=== PATIENT | male | born 1965 | race African-American/Black ===

== ENCOUNTER 2016-09-16 05:46 | Inpatient (IN) ==
[2016-09-16] MEDS ORDERED: NITROGLYCERIN ONE (05:50)
[2016-09-16] MEDS ORDERED: ZOFRAN ONE (05:55)
[2016-09-16] MEDS ORDERED: MORPHINE ONE (05:55)
[2016-09-16] MEDS ORDERED: CATAPRES PO ONE ×2 (06:13→10:08)
[2016-09-16] MEDS ORDERED: CATAPRES ONE ×2 (06:18)
--- NOTE | 2016-09-16 06:19 | PROVIDER DOCUMENTATION ---
HPI-Respiratory General - General Source: patient - History of Present Illness-Resp Quality of Pain: reports: none Onset/Duration: reports: 1-3 hours ago Timing: reports: still present Cough Quality/Degree: reports: mild Episode Frequency: occasional episodes Current Respiratory Medication Therapy: Initiated see nurses note Modifying Factors: improves with: nothing Associated Symptoms: reports: shortness of breath. denies: chest pain/soreness , headache, lightheadedness <Fred Hill Jr - Last Filed: 09/16/16 14:50> <Bobbi Burnett - Last Filed: 09/16/16 15:17> - General Chief Complaint: Shortness of Breath Stated Complaint: SOB Time Seen by Provider: 09/16/16 06:04 Allergies/Adverse Reactions: Patient Allergies Allergy/AdvReac Type Severity Reaction Status Date / Time No Known Allergies Allergy Verified 07/06/16 08:02 Home Medications: Home Medication List Medication Instructions Recorded Confirmed Last Taken Type Clonidine [Catapres] 0.2 mg PO TID 10/18/13 09/16/16 08/20/16 History Metformin [Glucophage] 500 mg BID 11/28/14 09/16/16 08/20/16 History Omeprazole [Prilosec] 20 mg PO DAILY 11/28/14 09/16/16 08/20/16 History Carvedilol [Coreg] 25 mg PO BID 07/06/16 09/16/16 08/20/16 History Cetirizine [Zyrtec] 1 tab PO DAILY 09/16/16 09/16/16 Unknown History Naproxen 1 tab PO BID 09/16/16 09/16/16 Unknown History Simvastatin 1 tab PO DAILY 09/16/16 09/16/16 Unknown History - History of Present Illness-Resp Nature of Presenting Problem: 51 y/o AAM with a PMHx of HLD, HTN and DM that presents to the ED with a CC of SOB. Pt states the symptoms started at 0430 upon awakening. Reports no aggravating or alleviating factors. Reports some productive cough, but does not know th color of the sputum. Additional associated symptoms include increased urinary frequency, but the patient reports this is normal in the AM. Pt denies any chest or abdominal pain, nausea, emesis or diarrhea. No other issues reported. (Fred Hill Jr) Review of Systems - Adult - REVIEW OF SYSTEMS - ADULT Constitutional: reports: no symptoms reported Eyes: reports: no symptoms reported Ears, Nose, Mouth & Throat: reports: no symptoms reported Cardiovascular: reports: no symptoms reported Respiratory: reports: shortness of breath Gastrointestinal: reports: no symptoms reported Genitourinary: reports: frequency Musculoskeletal: reports: no symptoms reported Integumentary: reports: no symptoms reported Neurological: reports: no symptoms reported Psychiatric: reports: no symptoms reported Endocrine: reports: no symptoms reported Hematologic/Lymphatic: reports: no symptoms reported Allergic/Immunologic: reports: no symptoms reported <Fred Hill Jr - Last Filed: 09/16/16 14:50> Past History - Adult - PAST MEDICAL HISTORY-ADULT Review of Records: reports: Old Records Reviewed, Nursing Assessment Review, Medications Reviewed Major Childhood Illnesses: reports: history unknown Cardiovascular: reports: HTN, hyperlipidemia Respiratory: reports: pneumonia Gastrointestinal: reports: GERD Musculoskeletal: reports: denies history Neurological: reports: denies history Endocrine/Immune: reports: Diabetes - PRIOR SURGERIES/PROCEDURES Surgical/Procedure History: reports: reviewed, not pertinent - IMMUNIZATION STATUS Childhood Immunizations: See Nurse Assessment Flu Vaccine: See Nurse Assessment - FAMILY HISTORY Family History: reviewed, not pertinent - SOCIAL HISTORY Smoking: cigarettes Substance Use: marijuana Alcohol Use Frequency: never Living Situation: family <Fred Hill Jr - Last Filed: 09/16/16 14:50> Physical Exam-General - PHYSICAL EXAM-ADULT Initial Vital Signs Reviewed: Yes - CONSTITUTIONAL General Appearance: alert, mild distress, obese. negative: slow to respond, obtunded, combative - EYES Eyes: PERRL/EOMI, pink conjunctivae - HEAD, EARS, NOSE, MOUTH & THROAT HENMT: normocephalic/atraumatic. negative: pharyngeal erythema, tonsillar exudate - NECK Neck: non-tender, supple. negative: tender lateral - RESPIRATORY Respiratory: chest non-tender, lungs clear, normal breath sounds. negative: accessory muscle use, crackles, rales, rhonchi, stridor, wheezing - CARDIOVASCULAR Cardiovascular: normal peripheral pulses, no murmur, tachycardia - CHEST (BREASTS) Chest/Breast: no tenderness - GASTROINTESTINAL (ABDOMEN) Abdominal Exam: normal bowel sounds, soft, distended (secondary to body habitus) . negative: guarding, rigid, rebound, tenderness - GENITOURINARY Male Genitalia: deferred Rectal Exam: deferred - LYMPHATIC Lymphatic: no adenopathy - MUSCULOSKELETAL Back Exam: normal inspection. negative: muscle spasm, swelling Extremity: normal range of motion. negative: deformity, erythema - SKIN Integumentary: normal color, normal turgor, warm/dry. negative: swelling, tenderness - NEUROLOGIC Neurologic: grossly normal. negative: facial droop, focal weakness, motor weakness, sensory deficit - PSYCHIATRIC Psych/Mental Status: normal mood/affect, normal thought content, normal thought process, oriented x 3. negative: anxious, disheveled, tearful <Fred Hill Jr - Last Filed: 09/16/16 14:50> Progress - REASSESSMENT Reassessment #1 Time Reassessed: 10:44 (Pt seen and examined. Explained care plan with patient and family. Pt and had minor argument over plan and patient stated that he was not going to [facility] and that he wanted to go home. I expressed my concern that the patient was having a heart attack. He stated he did not care and that he wanted to go home. I explained the risk associated with such a decision. Pt reiterated that he was going home. Please note that I was unable to give pt anticoagulation due to high blood pressure. ) Reassessment #2 Time Reassessed: 10:49 (Pt now states that [place] [facility] [place]iology. Please not that I am unable ot give patient anticoagulation due to BP. Unable to start drip as pt will not accept drip/ICU admission. ) - EKG 1 Time of EKG reading by physician:: 05:59 EKG Read and Signed by:: Fred Hill Jr EKG Interpretation (*Must complete 3 of following elements*): Abnormal Rate: 108 Rhythm: sinus tachycardia QRS: normal MI Interval: normal ST Wave: depressed Comments: T wave abnormality 2 Time of EKG reading by physician:: 07:19 EKG Read and Signed by:: Fred Hill Jr EKG Interpretation (*Must complete 3 of following elements*): Abnormal Rate: 77 Rhythm: normal sinus ST Wave: depressed Prior EKG Comparison: unchanged from prior Comments: t wave abnormality - CONSULTS/PCP/HOSPITALIST Notification #1 *Consult/PCP/Hospitalist*: Dr. Houser Time Discussed: 10:42 (send pt to [facility] for admission and he will see there for further evaluation ) #2 Consult: Dr. Ochoa Time Discussed: 11:50 Consult Disposition: Admit (accept in transfer. Will call when bed available.) <Fred Hill Jr - Last Filed: 09/16/16 14:50> - EKG 1 Time of EKG reading by physician:: 12:56 EKG Read and Signed by:: Fred Hill Jr EKG Interpretation (*Must complete 3 of following elements*): Abnormal (T wave abnormality; consider inferolateral ischemia Prolonged QT) Rate: 64 Rhythm: sinus with 1st degree AV block ST Wave: non-specific ST changes <Bobbi Burnett - Last Filed: 09/16/16 15:17> - PLAN OF CARE/RESULTS Progress/Plan/Lab Results: Laboratory Tests 09/16/16 09/16/16 09/16/16 05:50 05:50 05:50 WBC RBC Hgb Hct MCV MCH MCHC RDW Std Deviation Plt Count MPV Immature Gran % (Auto) Neut % (Auto) Lymph % (Auto) [place] % (Auto) Eos % (Auto) Baso % (Auto) Immature Gran # (Auto) Neut # (Auto) Lymph # (Auto) [place] # (Auto) Eos # (Auto) Baso # (Auto) PT INR APTT (Factor Assay) Sodium 136 Potassium 4.2 Chloride 100 Carbon Dioxide 19 L Anion Gap 18 BUN 22 Creatinine 2.0 H Estimated GFR/1.73 m2 35 BUN/Creatinine Ratio 11 Glucose 337 H POC Glucose Calculated Osmolality 289 Calcium 9.0 Magnesium 2.2 Total Bilirubin 0.20 AST 25 ALT 16 Alkaline Phosphatase 200 H Creatine Kinase 118 Troponin T 0.099 H Ixz-G-Oytspadjral Pept 2968 H Total Protein 7.7 Albumin 3.7 Globulin 4.0 Albumin/Globulin Ratio 1.0 09/16/16 09/16/16 09/16/16 05:50 05:50 08:01 WBC 7.39 RBC 6.52 H Hgb 17.0 Hct 48.1 MCV 73.8 L MCH 26.1 L MCHC 35.3 RDW Std Deviation 16.6 H Plt Count 203 MPV 10.6 H Immature Gran % (Auto) 0.3 Neut % (Auto) 34.2 L Lymph % (Auto) 51.8 H Atlantic % (Auto) 6.5 Eos % (Auto) 6.5 Baso % (Auto) 0.7 Immature Gran # (Auto) 0.02 Neut # (Auto) 2.53 Lymph # (Auto) 3.83 H Atlantic # (Auto) 0.48 Eos # (Auto) 0.48 Baso # (Auto) 0.05 PT 12.4 INR 0.89 APTT (Factor Assay) 28.6 Sodium Potassium Chloride Carbon Dioxide Anion Gap BUN Creatinine Estimated GFR/1.73 m2 BUN/Creatinine Ratio Glucose POC Glucose 311 H Calculated Osmolality Calcium Magnesium Total Bilirubin AST ALT Alkaline Phosphatase Creatine Kinase Troponin T Dpm-P-Chswectdovb Pept Total Protein Albumin Globulin Albumin/Globulin Ratio 09/16/16 09/16/16 09/16/16 08:19 08:19 09:36 WBC RBC Hgb Hct MCV MCH MCHC RDW Std Deviation Plt Count MPV Immature Gran % (Auto) Neut % (Auto) Lymph % (Auto) Atlantic % (Auto) Eos % (Auto) Baso % (Auto) Immature Gran # (Auto) Neut # (Auto) Lymph # (Auto) [place] # (Auto) Eos # (Auto) Baso # (Auto) PT INR APTT (Factor Assay) Sodium Potassium Chloride Carbon Dioxide Anion Gap BUN Creatinine Estimated GFR/1.73 m2 BUN/Creatinine Ratio Glucose POC Glucose 263 H Calculated Osmolality Calcium Magnesium Total Bilirubin AST ALT Alkaline Phosphatase Creatine Kinase 88 Troponin T 0.119 H Jnb-Z-Docplxexpgu Pept Total Protein Albumin Globulin Albumin/Globulin Ratio Orders Category Date Time Status Cardiac Monitoring DIRECTED Care 09/16/16 07:10 Active Oxygen Therapy- ED Nursing DIRECTED Care 09/16/16 07:10 Active Saline Loc NOW Care 09/16/16 07:10 Active CHEST-PORTABLE [RAD] Stat Exams 09/16/16 Completed CBC WITH ELECTRONIC DIFF [HEME] Stat Lab 09/16/16 05:50 Completed CK PROFILE [SP CHEM] Stat Lab 09/16/16 05:50 Completed CK PROFILE [SP CHEM] Stat Lab 09/16/16 08:19 Completed COMPREHENSIVE METABOLIC PANEL [CHEM] Stat Lab 09/16/16 05:50 Completed MAGNESIUM [CHEM] Stat Lab 09/16/16 05:50 Completed PRO B-NATRIURETIC PEPTIDE Stat Lab 09/16/16 05:50 Com[address]IME WITH INR PL [COAG] Stat Lab 09/16/16 05:[address] [COAG] Stat Lab 09/16/16 05:50 Completed TROPONIN T Stat Lab 09/16/16 05:50 Completed TROPONIN T Stat Lab 09/16/16 08:19 Completed 0.9% Sodium Chloride Inj [Ns] 1,000 ml Med 09/16/16 07:50 Discontinued IV 999 mls/hr Clonidine [Catapres] Med 09/16/16 06:18 Discontinued 0.1 mg .ROUTE .STK-MED ONE Clonidine [Catapres] Med 09/16/16 06:18 Discontinued 0.2 mg .ROUTE .STK-MED ONE Clonidine [Catapres] Med 09/16/16 10:08 Discontinued 0.2 mg PO NOW ONE Clonidine [Catapres] Med 09/16/16 06:13 Discontinued 0.3 mg PO NOW ONE Diltiazem [Cardizem] Med 09/16/16 08:08 Discontinued 10 mg IV NOW ONE Insulin Human Reg Dose ([address] [Humulin R Dose ([place] Med 09/16/16 08:44 Discontinued )] 1 dose .ROUTE .STK-MED ONE Insulin Human Regular [Humulin R] Med 09/16/16 07:50 Discontinued 10 unit IV NOW ONE Metoprolol [Lopressor] Med 09/16/16 07:08 Discontinued 5 mg IV NOW ONE Morphine Med 09/16/16 05:55 Discontinued 2 mg .ROUTE .STK-MED ONE Morphine Med 09/16/16 06:21 Discontinued 4 mg IV NOW ONE Nitroglycerin Med 09/16/16 05:50 Discontinued 1 inch .ROUTE .STK-MED ONE Nitroglycerin Med 09/16/16 06:21 Discontinued 1 inch TOP NOW ONE Ondansetron [Zofran] Med 09/16/16 05:55 Discontinued 4 mg .ROUTE .STK-MED ONE Ondansetron [Zofran] Med 09/16/16 06:21 Discontinued 4 mg IV NOW ONE EKG [EKG] Stat Ther 09/16/16 06:27 Draft EKG [EKG] Stat Ther 09/16/16 07:11 Draft Vital Signs - 24 hr 09/16/16 09/16/16 09/16/16 05:46 06:02 06:07 Temperature 97.8 F Pulse Rate 121 H 111 H 109 H Respiratory 24 33 H 25 H Rate Blood Pressure 257/177 245/154 245/154 O2 Sat by Pulse 85 L 89 L 89 L Oximetry 09/16/16 09/16/16 09/16/16 06:22 06:34 07:05 Temperature Pulse Rate 116 H 104 H 92 H Respiratory 22 24 Rate Blood Pressure 245/160 217/142 224/135 O2 Sat by Pulse 91 L 93 L Oximetry 09/16/16 09/16/16 09/16/16 07:07 07:10 07:15 Temperature Pulse Rate 87 83 81 Respiratory 26 H Rate Blood Pressure 184/127 203/127 196/131 O2 Sat by Pulse 93 L Oximetry 09/16/16 09/16/16 09/16/16 07:20 07:25 07:35 Temperature Pulse Rate 79 79 75 Respiratory Rate Blood Pressure 199/127 190/118 169/124 O2 Sat by Pulse Oximetry 09/16/16 09/16/16 09/16/16 07:45 08:39 08:56 Temperature Pulse Rate 75 71 69 Respiratory 24 26 H Rate Blood Pressure 193/122 191/117 178/115 O2 Sat by Pulse 95 95 Oximetry 09/16/16 09/16/16 09/16/16 09:05 09:07 09:10 Temperature Pulse Rate 67 67 68 Respiratory Rate Blood Pressure 167/105 174/103 162/99 O2 Sat by Pulse Oximetry 09/16/16 09/16/16 09:15 10:26 Temperature Pulse Rate 68 65 Respiratory 24 22 Rate Blood Pressure 164/97 157/97 O2 Sat by Pulse 93 L 96 Oximetry (Fred Hill Jr) Departure - Departure Time of Disposition Order: 10:43 Certified Medical Emergency: Emergent <Fred Hill Jr - Last Filed: 09/16/16 14:50> <Bobbi Burnett - Last Filed: 09/16/16 15:17> - Departure DIAGNOSIS: NSTEMI (non-ST elevated myocardial infarction), Hypertensive urgency, malignant , Medical non-compliance Disposition: ADMITTED INPATIENT 09 Condition: Fair Attestation - Scribe Verification/Attestation Scribe:: Bobbi Burnett Acting as Scribe for:: Fred Hill Jr Scribe documention review:: This chart was documented by a scribe and accurately reflects the service the provider performed and the decisions made by the provider. - Physician/ JENNA Attestation Patient care was provided by Advanced Practice Provider:: No <Bobbi Burnett - Last Filed: 09/16/16 15:17> Physician Attestation
[2016-09-16] MEDS ORDERED: NITROGLYCERIN TOP ONE (06:21)
[2016-09-16] MEDS ORDERED: MORPHINE IV ONE (06:21)
[2016-09-16] MEDS ORDERED: ZOFRAN IV ONE (06:21)
--- NOTE | 2016-09-16 06:31 | EKG Report ---
Test Performed on : 09/16/2016 05:59:01 AM Test Reason : SOB Blood Pressure : / mmHG Vent. Rate : 108 BPM Atrial Rate : 108 BPM P-R Int : 198 ms QRS Dur : 096 ms QT Int : 356 ms P-R-T Axes : 021 002 123 degrees QTc Int : 477 ms Sinus tachycardia. Possible Left atrial enlargement Septal infarct , age undetermined Cannot rule out Inferior infarct , age undetermined T wave abnormality, consider lateral ischemia Abnormal ECG When compared with ECG of 24-AUG-2016 08:43, Significant changes have occurred Unconfirmed Result
[2016-09-16] MEDS ORDERED: LOPRESSOR IV ONE (07:08)
--- NOTE | 2016-09-16 07:12 | Diag Imaging Result Document ---
PROCEDURE NAME: CHEST-PORTABLE - 09/16/2016 PORTABLE CHEST: COMPARISON: Compared to 08/24/2016. FINDINGS: The lungs are well expanded. The heart is not enlarged. There are increased interstitial markings in the mid and lower lungs. No pleural effusions identified. IMPRESSION: Pulmonary edema versus pneumonia. Followup PA and lateral recommended.
[2016-09-16 07:25] LABS: BASO% 0.7 % (0.0-0.8); EOS# 0.48 X1000 (0.0-0.7); EOS% 6.5 % (0.0-10.0); HEMATOCRIT 48.1 % (42.0-52.0); IMM GRAN# 0.02 X1000 (0.0-0.04); IMM GRAN% 0.3 % (0.0-0.5); LYMPH# 3.83 X1000 (1.2-3.4); LYMPH% 51.8 % (20.5-51.1); MANUAL DIFF NEEDED? NO; MCH 26.1 PG (27-31); MCHC 35.3 g/dL (33-37); MCV 73.8 FL (81-99); MONO# 0.48 X1000 (0.11-0.59); MONO% 6.5 % (1.7-9.3); MPV 10.6 FL (7.4-10.4); NEUT% 34.2 % (42.2-75.2); PLT 203 X1000 (130-400); RBC 6.52 XMIL (4.7-6.1)
--- NOTE | 2016-09-16 07:27 | EKG Report ---
Test Performed on : 09/16/2016 07:19:20 AM Test Reason : sob Blood Pressure : / mmHG Vent. Rate : 077 BPM Atrial Rate : 077 BPM P-R Int : 204 ms QRS Dur : 094 ms QT Int : 448 ms P-R-T Axes : 025 -28 128 degrees QTc Int : 506 ms Normal sinus rhythm. Possible Left atrial enlargement Septal infarct (cited on or before 16-SEP-2016) T wave abnormality, consider lateral ischemia Prolonged QT Abnormal ECG When compared with ECG of 16-SEP-2016 05:59, (Unconfirmed) Serial changes of Septal infarct present Unconfirmed Result
[2016-09-16 07:35] LABS: INR 0.89 (0.86-1.15); PROTIME 12.4 Seconds (12.1-15.5)
[2016-09-16 07:36] LABS: PTT PL 28.6 Seconds (22.6-43.9)
[2016-09-16 07:44] LABS: ALBUMIN 3.7 g/dL (3.5-5.0); MAGNESIUM 2.2 mg/dL (1.5-2.7); POTASSIUM 4.2 mmol/L (3.5-5.1); TOTAL BILIRUBIN 0.2 mg/dL (0.20-1.00); TOTAL PROTEIN 7.7 g/dL (6.3-8.3)
[2016-09-16] MEDS ORDERED: HUMULIN R IV ONE (07:50)
[2016-09-16] MEDS ORDERED: NS 1,000 ML IV ONE (07:50)
[2016-09-16] MEDS ORDERED: CARDIZEM IV ONE (08:08)
[2016-09-16] MEDS ORDERED: HUMULIN R DOSE (PARKWAY) ONE (08:44)
[2016-09-16] MEDS ORDERED: ASPIRIN ONE (11:54)
[2016-09-16] MEDS ORDERED: ASPIRIN PO ONE (11:55)
[2016-09-16] MEDS ORDERED: NICODERM PATCH TD ONE (12:57)
[2016-09-16] MEDS ORDERED: ATIVAN PO ONE (12:57)
[2016-09-16] MEDS ORDERED: APRESOLINE IV ONE (13:11)
--- NOTE | 2016-09-16 13:17 | EKG Report ---
Test Performed on : 09/16/2016 12:56:25 PM Test Reason : 6 hr Blood Pressure : / mmHG Vent. Rate : 064 BPM Atrial Rate : 064 BPM P-R Int : 216 ms QRS Dur : 092 ms QT Int : 468 ms P-R-T Axes : 031 -03 158 degrees QTc Int : 482 ms Sinus rhythm. with 1st degree AV block. T wave abnormality, consider inferolateral ischemia Prolonged QT Abnormal ECG When compared with ECG of 16-SEP-2016 07:19, (Unconfirmed) Criteria for Septal infarct are no longer present Unconfirmed Result
[2016-09-16] MEDS ORDERED: HEPARIN 25,000 UNITS/D5W 250 ML IV SCH (13:30)
[2016-09-16] MEDS ORDERED: TRANDATE PO SCH ×4 (13:45→13:55)
[2016-09-16] MEDS ORDERED: TRANDATE ONE (13:56)
[2016-09-16] MEDS: NORVASC PO SCH ×2 (14:05→20:05)
[2016-09-16] MEDS ORDERED: ZOFRAN IV PRN (14:44)
[2016-09-16] MEDS ORDERED: NICODERM PATCH TD SCH (14:44)
[2016-09-16] MEDS ORDERED: TYLENOL PO PRN (14:44)
[2016-09-16] MEDS ORDERED: TRANDATE PO ONE ×2 (14:56)
[2016-09-16] MEDS: HUMALOG SUBQ SCH ×2 (16:17→20:16)
[2016-09-16 16:30] LABS: POTASSIUM 4.2 mmol/L (3.5-5.1)
[2016-09-16] MEDS: CATAPRES PO SCH (16:50)
--- NOTE | 2016-09-16 17:31 | HISTORY AND PHYSICAL ---
PRIMARY CARE PHYSICIAN: Dr. Ross TILE MECHANIC HELPER: Dr. Camilo CHIEF COMPLAINT: Shortness of breath. HISTORY OF PRESENT ILLNESS: This is a 51-year-old gentleman who presented to the emergency room complaining of shortness of breath. He states that shortly after getting up this morning that he had what he felt like was an asthma attack, stating that he just could not get his breath. He felt like air would go in, but he could not get air out. He denied any accompanying symptoms. He states he has never had this before. Movement aggravated. Being still relieved somewhat. On arrival to the emergency room, he had a room air saturation of 85. It did increase to 89% on 4 liters nasal cannula. He was noted to have a blood pressure of 257/ 177 with a heart rate of 121, with EKGs revealing sinus tachycardia. Troponin returned at 0.099. In the emergency room, he was given p.o. clonidine, morphine, nitroglycerin ointment, IV Lopressor, as well as IV Cardizem. Blood pressures did decrease to the 160s to 180s over 90s to low 100s. He does state that for the last 20 years despite multiple medications daily, his blood pressure normally runs in the 180s to 190s over 100 to 110. He states that somewhere around 9 o'clock his shortness of breath resolved, and at the time of interview, he denies any complaints other than being hungry. He underwent echocardiogram and myocardial perfusion scan in March of 2015. Echocardiogram at that time revealed an EF of 55% with normal structure, and myocardial perfusion scan revealed nondiagnostic Lexiscan. Electrocardiogram with myocardial perfusion images revealed a low-grade reversible defect in inferior wall with significant chest wall attenuation with EF of 57%. He states that within the last three or four months he had a heart catheterization in [place] that was negative according to his report. PAST MEDICAL HISTORY: 1. Hypertension. 2. Diabetes type 2. 3. Hyperlipidemia. 4. Sleep apnea, although he does not wear CPAP. PAST SURGICAL HISTORY: 1. Cyst on the back of his neck removed. 2. 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 SOCIAL HISTORY: He smokes a pack a day. He denies alcohol or illicit drug use. He does live with his and children that are active in his care. ALLERGIES: No known drug allergies. HOME MEDICATIONS: Simvastatin daily, clonidine 0.2 t.i.d., Prilosec 20 daily, Naprosyn one tablet twice a day, metformin 500 b.i.d., Zyrtec one tab daily, Coreg 25 mg b.i.d. REVIEW OF SYSTEMS: Fourteen-point review of systems was discussed with patient with pertinent positives stated in the HPI. He denied any chest pain, palpitations, syncope, dizziness, PND, orthopnea, fever, chills, black or bloody vomitus, black or bloody stool, nausea , vomiting, diarrhea, constipation, hematuria, dysuria. PHYSICAL EXAMINATION: GENERAL: This is a 51-year-old gentleman who was sitting up in the bed in no distress. VITAL SIGNS: Blood pressure is 185/102 with a heart rate of 65, respirations 20. Temperature is 97.8 oral with oxygen saturations of 99% on 4 liters nasal cannula. HEENT: Head is normocephalic, atraumatic. Pupils equal, round, reactive to light. EOMs are intact. Sclerae are anicteric. Mucous membranes are moist. NECK: Supple with trachea midline. CARDIOVASCULAR: Regular rate and rhythm. S1 and S2 appreciated. PULMONARY: Breath sounds are clear with no increased work of breathing noted. Chest does rise and fall symmetric with respiration. GASTROINTESTINAL: Abdomen is soft, nontender, nondistended, with bowel sounds in all four quadrants. BACK: No CVAT. No spine tenderness. MUSCULOSKELETAL: Good range of motion of joints . NEUROLOGIC: He is alert and oriented x3 with cranial nerves II through XII grossly intact. EXTREMITIES: No clubbing, cyanosis, or edema. Calves are nontender, and pulses are palpable x4. SKIN: Warm and dry with no rashes or lesions noted. DIAGNOSTICS: WBC is 7.39 with hemoglobin 17, hematocrit 48, and platelets of 203. Chemistry: Sodium is 136, potassium 4.2, BUN 22, creatinine 2, with glucose of 337. INR is 0.89. Troponin was 0.099, 0.119, 0.113. ASSESSMENT AND PLAN: 1. Lii-XR-innuhncg myocardial infarction. 2. Hypertensive urgency. 3. Medical noncompliance. 4. Tobacco abuse. 5. Chronic kidney disease. Patient will be admitted to ICU, placed on telemetry. Cardiology will be consulted. Will give supplemental oxygen. Will start heparin. Due to his chronic kidney disease, we will start heparin drip. We will not give a bolus at this time. We will follow heparin protocol. I did discuss the patient with Dr. Houser. At this time, will start labetalol as well as Norvasc. Will hold his metformin. Place him on patterned blood glucose with sliding scale insulin. We did discuss nicotine cessation, discussing the perils of continuing as well as options to stop. Nicotine patch will be given. The patient was very anxious. He was refusing ICU admission, talking about going home. I did spend 30 minutes or so in the room with the patient. Discussed actually the anatomy behind an MS. We discussed dysrhythmias as well as extension of an MS that could end up in . After taking the time to talk with him and answering his questions, he did state that he would be transferred to [facility]. He would go to ICU. He will see Dr. Houser and cooperate with the care. His as well as daughter were present. Their questions were also answered. Further treatments pending hospital course. Dictated by EVON De La Garza for Dgaoberto Ochoa MD Seen and I agree with the above evaluation I discussed with Dr Houser the shipping checker on the case Patient had Left heart cath about 18months ago and had very normal coronaries according to cardiology. BP continues to be high. Ass: Hypertensive Emergency Acute Diastolic Heart failure Troponin elevation secondary to demand Ischemia acute on chronic CKD Morbid obesity. Dc Heparin Aggressive control of BP Echo MTDD
[2016-09-16 17:49] LABS: INR 1.04
--- NOTE | 2016-09-16 17:53 | CONSULTATION ---
DATE OF CONSULTATION: 09/16/2016 CONSULTATION REQUESTED BY: Hospitalist Service, emergency room physician also. REASON FOR CONSULTATION: Hypertensive crisis. CHIEF COMPLAINT: Shortness of breath. HISTORY OF PRESENT ILLNESS: Mr. Allen is a 51-year-old black gentleman who is well known to our service. The patient was in his usual state of health, got up this morning at the usual time. He says that typically he gets up at 4:30 in the morning, watches the news, and then has to get to work at [employer] by 7 a.m. In the morning he noted all of a sudden that he started to sweat profusely and then he noted that he could not breathe. This got worse very quickly and then he decided to call the emergency service. They got to his house and they noted that his blood pressure was exceedingly high. He was brought to the emergency department at [facility] where they noted a blood pressure that at first encounter was 191/117 and subsequent measurements 178/115, 174/103, 207/114. They recorded it at 250 at the time of first encounter with the emergency medical service. At any rate, the patient has been given a number of medications to try to lower his blood pressure including labetalol, hydralazine, and so forth. At this time, his blood pressure is still running relatively high, systolic in the 180 to 200 range. He is feeling much better. He was given oxygen. He denies having any chest pain. During the initial assessment, they checked a pro BNP level. It was 2968. They checked troponin levels twice, 0.099, 0.119, and 0.113. The patient has a BUN of 22. Creatinine is 2.0. His CPK was normal. Of note, his alkaline phosphatase is elevated at 200. His hemoglobin is 17 grams. His chest x-ray at the time of initial presentation, read by Dr. Gibbons, indicated pulmonary edema. There is cardiomegaly. Electrocardiogram initially showed sinus tachycardia with diffuse repolarization abnormalities. Subsequent electrocardiograms showed generally the same type of pattern. There is diffuse T wave inversion. PAST MEDICAL HISTORY: Past history is positive for severe hypertension for a number of years, diabetes mellitus type 2. He has been obese. Weight went up to 330 pounds, now is down to 288. He has hyperlipidemia, gastroesophageal reflux. The patient has been found to have significant hypertrophic ventricle and, at some point on one of the Holter monitors that they gave him, they noted a 28-beat run of ventricular tachycardia. He was sent to [facility] for evaluation. They did a cardiac MR study that showed patchy fibrosis in the midwall of the entire ventricle that was not typical of any specific disease, more than likely due to long-term hypertension. He has had previous CT of the coronary arteries in 2011 that showed 0 calcium score and no evidence of any significant coronary stenosis. Subsequently he underwent a stress test that showed possible reversible defect in 2014 and he was sent to Dr. Sun in [place] who performed a heart catheterization on him. By the way, this was a very difficult heart cath according to his own report in March of 2015. He found no stenosis in the left main, 10% in the LAD proximally and 15% in the midportion of it. The circumflex was 10%. The right coronary artery was 0. Left ventricular ejection fraction was normal. The end diastolic pressure of the left ventricle was 15 mm. The patient thereafter has followed with Dr. Camilo. The last time he was seen at the office was June of 2015. HOME MEDICATIONS: His home medications at the time of this admission include: 1. Amlodipine 5 mg twice a day. 2. Clonidine 0.2 three times a day. 3. Simvastatin 1 tablet daily. 4. Prilosec 20 mg daily. 5. Naprosyn 1 tablet twice a day. 6. Metformin 500 twice a day. 7. Zyrtec 1 tablet daily. 8. Carvedilol 25 twice a day. ALLERGIES: Negative. PAST SURGICAL HISTORY: Neck surgery and finger surgery. SOCIAL HISTORY: He is . He lives at home with family. He smokes 1-2 packs a day for many years. REVIEW OF SYSTEMS: Noncontributory. He is very active. He goes to work every day. He has been working at [employer] for the past 13 years and he has no difficulty performing his duties. Review of systems is basically noncontributory. PHYSICAL EXAMINATION: Vital signs: Right now blood pressure 156/92, pulse 69, temperature 97.8, respirations 16. General: He is awake, alert, in no distress, sitting upright. He appears to be comfortable. HEENT: Unremarkable. Chest: Clear to auscultation and percussion. Cardiac: Heart sounds regular and rhythmic. No gallop or murmur. Abdomen: Nontender, soft. No masses or hepatomegaly. Extremities: Good pulses. No peripheral edema. Neurologic: Moves all four extremities. LABORATORY DATA: Blood work I have already reported. IMPRESSION: 1. Patient who presented truly with hypertensive crisis. Patient presented with acute pulmonary edema secondary to severe hypertension. He does have evidence of severe left ventricular hypertrophy by cardiac imaging studies. He has had previous cardiac catheterization indicating trivial coronary disease which does not contribute to the presentation. 2. History of isolated episode of nonsustained ventricular tachycardia noted on a Holter monitor. 3. Long-term hypertension. 4. Mild renal dysfunction. 5. History of diabetes mellitus type 2. 6. Obesity. 7. Patient reports a history of sleep apnea syndrome and he has not been complaint with his CPAP mask. The last time he was checked was [address] Hernandez. RECOMMENDATIONS: 1. Patient really needs to be placed on an adequate regimen to manage his severe hypertension. He should be on a combination of beta-blockers, specifically labetalol 300-500 mg twice a day, plus amlodipine 5-10 mg twice a day, plus angiotensin destiney, either Diovan and losartan 50 twice a day or 100 twice a day. He may require a tiny amount of a diuretic on a regular basis. 2. He needs to be referred back to Dr. Hernandez for reassessment of his sleep apnea syndrome. 3. He really needs to work on losing weight. His body mass index right now is 37. He is still quite obese. 4. He needs to quit smoking also. 5. One additional piece of advise is, given the fact that his calcium score was 0 and he had very trivial coronary artery disease, consideration might be given at reassessing the need for using simvastatin to treat his hyperlipidemia. The reason is because of his abnormal liver function tests. Alkaline phosphatase is significantly elevated and that may have to be investigated. Thank you for the opportunity to participate in his evaluation.
[2016-09-16] MEDS: COREG PO SCH (20:05)
[2016-09-16] MEDS: MINIPRESS PO SCH (20:05)
[2016-09-17] MEDS: LABETALOL IV PRN ×3 (04:03→22:56)
[2016-09-17] MEDS: HUMALOG SUBQ SCH ×4 (06:49→20:14)
[2016-09-17] MEDS: PRILOSEC PO SCH (06:50)
[2016-09-17 07:04] LABS: MANUAL DIFF NEEDED? NO
[2016-09-17 07:26] LABS: BASO% 0.1 % (0.0-0.8); EOS# 0.29 X1000 (0.0-0.7); EOS% 4.3 % (0.0-10.0); HEMATOCRIT 36.2 % (42.0-52.0); HEMOGLOBIN 12.5 g/dL (14.0-18.0); LYMPH# 2.19 X1000 (1.2-3.4); LYMPH% 32.6 % (20.5-51.1); MCH 25.9 PG (27-31); MCHC 34.5 g/dL (33-37); MCV 75.1 FL (81-99); MONO# 0.35 X1000 (0.11-0.59); MONO% 5.2 % (1.7-9.3); MPV 10.8 FL (7.4-10.4); NEUT% 57.8 % (42.2-75.2); PLT 126 X1000 (130-400); RBC 4.82 XMIL (4.7-6.1)
[2016-09-17 07:34] LABS: HEMOGLOBIN A1C 7.4 % (4.8-6.0)
--- NOTE | 2016-09-17 07:35 | EKG Report ---
Test Performed on : 09/17/2016 06:28:25 AM Test Reason : dyspnea Blood Pressure : / mmHG Vent. Rate : 069 BPM Atrial Rate : 069 BPM P-R Int : 202 ms QRS Dur : 096 ms QT Int : 458 ms P-R-T Axes : 032 -02 132 degrees QTc Int : 490 ms Normal sinus rhythm. T wave abnormality, consider anterolateral ischemia Prolonged QT Abnormal ECG When compared with ECG of 16-SEP-2016 12:56, (Unconfirmed) No significant change was found Confirmed by John Wan MD ([id number]) on 09/17/2016 9:02:03 PM
[2016-09-17] MEDS: NORVASC PO SCH ×3 (08:37→20:11)
[2016-09-17] MEDS: CATAPRES PO SCH ×3 (08:37→17:10)
[2016-09-17] MEDS: NICODERM PATCH TD SCH (08:37)
[2016-09-17] MEDS: COREG PO SCH (08:37)
--- NOTE | 2016-09-17 09:22 | PROGRESS NOTE ---
DATE: 09/17/2016 CHIEF COMPLAINT: Diaphoresis, shortness of breath, hypertensive crisis. SUBJECTIVE: Mr. Crs blood pressure is still running on the high side. He is generally feeling fine. He is not short of breath. He is not having any sweats. He has not had any chest pain. OBJECTIVE: Vital signs: His blood pressure today has been as high as 200/115. His pulse is in the 65-70 range, respirations 19, temperature 97.8. General: He is awake, alert, oriented, in no distress. HEENT: Unremarkable. He is eating breakfast. Chest: Clear to auscultation and percussion. Cardiac: Heart sounds are regular and rhythmic, no gallop or murmur. Abdomen: Nontender, soft, no masses, no hepatomegaly. Extremities: Good pulses, no peripheral edema. Neurological: He moves 4 extremities, follows commands. BLOOD WORK: Total cholesterol 264, triglycerides 704, HDL 28, LDL 86. His last BUN and creatinine from yesterday were 27 and 2.1. IMPRESSION: 1. Patient who presented with hypertensive crisis and acute pulmonary edema, diastolic heart failure--acute--due to severe hypertension. 2. History of diabetes. 3. History of dyslipidemia. 4. Hypertrophic cardiomyopathy like left ventricle, just due to correction poorly controlled hypertension. RECOMMENDATION: We will go ahead and maximize his medications. We will go up on labetalol to 400 mg twice a day. Will go on amlodipine to 10 mg twice a day. Will see how he does. He should stay in stepdown unit until his blood pressure is really very well controlled. Further advice will be forthcoming. [facility]
[2016-09-17] MEDS: LANTUS SUBQ SCH (10:00)
[2016-09-17] MEDS: CRESTOR PO SCH (10:00)
[2016-09-17] MEDS: APRESOLINE PO SCH ×2 (10:00→17:10)
[2016-09-17] MEDS: TRANDATE PO SCH ×2 (10:00→20:11)
[2016-09-17] MEDS: TRICOR PO SCH (10:00)
[2016-09-17] MEDS ORDERED: INSULIN PEN NEEDLES ONE (10:08)
--- NOTE | 2016-09-17 13:08 | Diag Imaging Result Document ---
PROCEDURE NAME: US RENAL 2 (RETROPER) COMPLETE - 09/17/2016 RENAL ULTRASOUND: COMPARISON: None available. FINDINGS: Note that this study was ordered as a renal artery Doppler. However, the patient was not n.p.o. for this reason as well as body habitus, renal artery waveforms could not be obtained. The kidneys are grossly normal in echotexture with no discrete mass or hydronephrosis. The right kidney measures 11.6 cm and the left kidney measures 11 cm in the greatest longitudinal axes. The right renal cortex measures up to 1.1 cm and the left renal cortex measures up to 0.8 cm in thickness. The urinary bladder is grossly unremarkable. There is a shadowing stone in the gallbladder lumen noted incidentally. The gallbladder is partially contracted. IMPRESSION: 1. Unable to obtain renal artery waveforms for the reasons discussed above. 2. Grossly unremarkable renal ultrasound, otherwise. 3. Incidental cholelithiasis.
--- NOTE | 2016-09-17 17:23 | PROGRESS NOTE ---
DATE: 09/17/2016 Today Mr. Allen referred to be doing fine. Did not really have any complaints. OBJECTIVE: Vital signs: Blood pressure is 161/100, pulse of 63, respirations 21, temperature is 98.2 degrees. General Exam: Mr. Allen is a 57-year-old male. He was in bed. He did not seem to be in any distress. HEENT: Mucosa is pink and moist. Anicteric and acyanotic. Neck: Supple. Chest: Good air entry bilateral. There are a few bibasilar crepitations. Cardiovascular: Regular rate and rhythm. Abdomen: Soft, distended, nontender. Extremities: No pedal edema. CLAIM REP: Patient is alert and oriented x4. There is no focal neurological deficit. LABORATORY DATA: WBC is 6.71, hemoglobin is 12.5, platelet count of 126,000. ASSESSMENT: 1. Hypertensive emergency. The blood pressure is gradually getting better. We will continue with the current changes that have been done. 2. Acute diastolic heart failure. 3. Troponin elevation secondary to demand ischemia. 4. Acute on chronic kidney disease. 5. Morbid obesity. 6. Hypertriglyceridemia. GENERAL PLAN: We will going to discontinue the simvastatin because of amlodipine drug interaction and put the patient on atorvastatin. We will start the patient on fenofibrate for the hypertriglyceridemia to prevent acute pancreatitis. We will do a renal ultrasound with Duplex to look at the flow in the renal artery and will also do aldosterone and renin level and metanephrines as initial studies to rule out possible secondary causes of hypertension. If the patient continues to be asymptomatic and the blood pressure is better controlled we will be able to discharge him tomorrow morning. [facility]
[2016-09-17] MEDS: MINIPRESS PO SCH (20:11)
[2016-09-18] MEDS: APRESOLINE PO SCH ×2 (01:41→08:00)
[2016-09-18 05:11] LABS: MANUAL DIFF NEEDED? NO
[2016-09-18 05:29] LABS: BASO% 0.3 % (0.0-0.8); EOS# 0.36 X1000 (0.0-0.7); EOS% 5.4 % (0.0-10.0); HEMATOCRIT 34.5 % (42.0-52.0); HEMOGLOBIN 11.9 g/dL (14.0-18.0); LYMPH# 2.72 X1000 (1.2-3.4); LYMPH% 40.7 % (20.5-51.1); MCH 26.2 PG (27-31); MCHC 34.5 g/dL (33-37); MCV 75.8 FL (81-99); MONO# 0.47 X1000 (0.11-0.59); MPV 12.3 FL (7.4-10.4); NEUT% 46.6 % (42.2-75.2); PLT 145 X1000 (130-400); RBC 4.55 XMIL (4.7-6.1)
[2016-09-18 05:45] LABS: CALCIUM 8.1 mg/dL (8.8-10.2); POTASSIUM 4.3 mmol/L (3.5-5.1)
[2016-09-18] MEDS: HUMALOG SUBQ SCH ×2 (06:18→11:02)
[2016-09-18] MEDS: CRESTOR PO SCH (08:00)
[2016-09-18] MEDS: NICODERM PATCH TD SCH (08:00)
[2016-09-18] MEDS: TRICOR PO SCH (08:00)
[2016-09-18] MEDS: TRANDATE PO SCH (08:00)
[2016-09-18] MEDS: NORVASC PO SCH (08:00)
[2016-09-18] MEDS: CATAPRES PO SCH ×2 (08:01→12:45)
[2016-09-18] MEDS: PRILOSEC PO SCH (08:01)
[2016-09-18] MEDS: LANTUS SUBQ SCH (08:02)
[2016-09-18] MEDS ORDERED: TRANDATE PO SCH (11:06)
[2016-09-18] MEDS ORDERED: APRESOLINE PO SCH (11:06)
--- NOTE | 2016-09-18 11:25 | PROGRESS NOTE ---
DATE: 09/18/2016 SUBJECTIVE: Mr. Allen reports he feels okay. He has no headaches. He is tolerating oral intake. OBJECTIVE: Vital Signs: On physical examination this morning, he is afebrile. His heart rates are in the high 60s to low 70s. His most recent blood pressure was 159/98. General: Generally, no acute distress. Cardiovascular: He is in a regular rate and rhythm. He has no obvious murmurs. No lower extremity edema. Chest: His chest exam is clear bilaterally. No increased work of breathing. Abdomen: Soft, nontender, nondistended. He has no obvious organomegaly. PERTINENT DATA: His white count 6.7, hematocrit 34.5, platelet count is 145. Sodium 133, potassium 4.3, BUN 29, creatinine 2.5. ASSESSMENT: 1. Hypertensive urgency. 2. Renal insufficiency. PLAN: I will increase his labetalol to 600 b.i.d. I will go up on his hydralazine to 75 t.i.d. The patient needs aggressive management of his blood pressure as an outpatient. I urged him to follow up with the sleep doctors to re-evaluate his sleep apnea. He is not compliant with CPAP therapy. I urged them to assess his diet for excess sodium.
[2016-09-18] MEDS ORDERED: ROBITUSSIN-AC PO PRN (13:14)
[2016-09-18 13:40] VITALS: BP 166/97
--- NOTE | 2016-09-19 01:07 | DISCHARGE SUMMARY ---
ADMISSION DATE: 09/16/2016 DISCHARGE DATE: 09/18/2016 FOLLOWUP: 1. Patient's PCP, Dr. Ross. 2. Patient's Named Account Executive, Dr. Camilo. CONSULTATIONS DURING THIS ADMISSION: Cardiology was consulted. Patient was seen by Dr. Houser, and followed up by Dr. Roque. INVASIVE PROCEDURES DONE DURING THIS ADMISSION: None. IMAGING STUDIES OF SIGNIFICANCE: A renal ultrasound was done, which was not able to obtain the kidneys were grossly unremarkable. Incidental cholelithiasis was found. ADMISSION DIAGNOSES: 1. Hypertensive emergency. 2. Acute diastolic heart failure. 3. Troponin elevation, secondary to demand ischemia. 4. Acute on chronic kidney disease. DISCHARGE DIAGNOSES: 1. Hypertensive emergency. 2. Acute diastolic heart failure. 3. Troponin elevation, secondary to demand ischemia. 4. Acute on chronic kidney disease. 5. Morbid obesity with a BMI of 37.0. 6. Hypertriglyceridemia. DISCHARGE MEDICATIONS: 1. Clonidine 0.2 p.o. 3 times per day. 2. Fenofibrate 145 mg daily. 3. Hydralazine 75 mg at bedtime. 4. Insulin 20 units subcutaneous daily. 5. Labetalol 600 b.i.d. 6. Prazosin 5 mg at bedtime. 7. Rosuvastatin 20 mg p.o. daily. 8. Amlodipine 10 mg b.i.d. 9. Guaifenesin 10 mL p.o. q 4 to 6 daily. PRESENTING COMPLAINT: Shortness of breath. HISTORY OF PRESENTING COMPLAINT: Mr Allen is a 51-year-old male, history of uncontrolled hypertension, who presented to [facility] because of acute onset of shortness of breath. Upon presentation, patient was evaluated. Blood pressure was 257/177. EKG was unrevealing, except for sinus tachy, but patient's troponin's were relatively elevated. Patient was admitted and transferred over here for suspicion of Aev-EI-[id number] elevation myocardial infarction. HOSPITAL COURSE: The patient was admitted to the intensive care unit. Blood pressure was aggressively managed. Troponin's were trended, however, we did have cardiology to see the patient. Patient usually sees Dr. Camilo, and there is a record that left heart catheterization was done about 18 months ago, and patient had normal coronaries. So we thought the troponin elevation was just due to demand ischemia from severe hypertension. During the hospital stay, the patient was also found to have microcytosis. Iron levels where done, and it was relatively fine, so we think this is probably anemia of chronic disease. Patient's creatinine has been relatively elevated since 2015. Here in the hospital it did worsen a little bit. I think this is probably due to the hypertensive nephrosclerosis , and patient will need to follow up with nephrology outpatient. However, he is making very adequate urine today. The urine output was 2075, and his electrolytes and acid base is normal. Today the patient blood pressure at the time of discharge is 166/97, pulse of 69 , respiration is 19. Patient is completely asymptomatic, and physical examination is unremarkable. Therefore, we are going to discharge the patient home to follow up with his primary care doctor, and also his primary operating room orderly. RECOMMENDATIONS: The patient has been advised on compliance to medications, also low-salt diet, and follow up with Nephrology as indicated above. 1. At the time of discharge, there is pending aldosterone, metanephrines and renin test, which patient is advised to review this with his primary operating room orderly. DISPOSITION: Home. ACTIVITY: As tolerated. DIET: Healthy heart diet. FOLLOWUP: The patient to follow up with the sub-specialities and with his PCP involved in his care. TIME SPENT: 1. For this discharge was 35 minutes. [id number]
== END 2016-09-18 14:23 | disposition home or self-care (01) | DRG 291 ==
LOC: P.ED 05:46 → ICU 05:47
PROVIDERS: ATTEND Internal Medicine
DX: I13.0 Hypertensive heart and chronic kidney disease with heart failure and stage 1 through stage 4 chronic kidney disease, or unspecified chronic kidney disease (principal); I50.31 Acute diastolic (congestive) heart failure; E11.22 Type 2 diabetes mellitus with diabetic chronic kidney disease; I24.8 Other forms of acute ischemic heart disease; I16.1 Hypertensive emergency; E66.01 Morbid (severe) obesity due to excess calories; N18.9 Chronic kidney disease, unspecified; E78.1 Pure hyperglyceridemia; G47.30 Sleep apnea, unspecified; F17.210 Nicotine dependence, cigarettes, uncomplicated; K21.9 Gastro-esophageal reflux disease without esophagitis; R74.8 Abnormal levels of other serum enzymes; I42.2 Other hypertrophic cardiomyopathy; D63.8 Anemia in other chronic diseases classified elsewhere; Z68.37 Body mass index [BMI] 37.0-37.9, adult; Z79.899 Other long term (current) drug therapy; Z79.84 Long term (current) use of oral hypoglycemic drugs; Z79.1 Long term (current) use of non-steroidal anti-inflammatories (NSAID); Z91.19 Patient's noncompliance with other medical treatment and regimen; Z82.49 Family history of ischemic heart disease and other diseases of the circulatory system
CPT/HCPCS: 71010; 76770; 80048; 80053; 80061; 82088; 82550; 82728; 82948; 83036; 83540; 83550; 83721; 83735; 83835; 83880; 84244; 84484; 85025; 85610; 85730; 93005; 93010; 94761; 96365; 96375; J0360; J1644; J1815; J2270; J2405; J7030

== ENCOUNTER 2017-01-12 03:47 | Inpatient (IN) ==
[2017-01-12] MEDS ORDERED: VASOTEC ONE (03:55)
[2017-01-12] MEDS ORDERED: LASIX ONE (03:55)
[2017-01-12] MEDS ORDERED: NITROGLYCERIN ONE (03:56)
[2017-01-12] MEDS ORDERED: LASIX IV ONE (04:00)
[2017-01-12] MEDS ORDERED: VASOTEC IV ONE ×2 (04:01→04:08)
[2017-01-12] MEDS ORDERED: NITROGLYCERIN TOP ONE (04:01)
[2017-01-12] MEDS ORDERED: NITROGLYCERIN 50 MG/D5W 50 MG/250 ML IV.SOLN IV SCH ×2 (04:06→05:55)
--- NOTE | 2017-01-12 04:15 | PROVIDER DOCUMENTATION ---
HPI-Respiratory General - General Chief Complaint: Shortness of Breath Stated Complaint: SOB Time Seen by Provider: 01/12/17 04:04 Source: patient, family Unable to obtain history due to:: urgency Allergies/Adverse Reactions: Patient Allergies Allergy/AdvReac Type Severity Reaction Status Date / Time No Known Allergies Allergy Verified 01/12/17 05:08 Home Medications: Home Medication List Medication Instructions Recorded Confirmed Last Taken Type Clonidine [Catapres] 0.2 mg PO TID 10/18/13 01/20/17 08/20/16 History Cetirizine [Zyrtec] 1 tab PO DAILY 09/16/16 01/20/17 Unknown History Glipizide/Metformin HCl 1 each PO BID 01/12/17 01/20/17 Unknown History [Glipizide-Metformin 5-500 mg] Omeprazole 20 mg PO DAILY 01/12/17 01/20/17 Unknown History SIMVAstatin [Zocor] 20 mg PO DAILY 01/12/17 01/20/17 Unknown History Furosemide [Lasix] 40 mg PO DAILY #30 tablet 01/13/17 01/20/17 Unknown Rx Verapamil S.r. [Isoptin Sr] 240 mg PO DAILY #30 tablet 01/13/17 01/20/17 Unknown Rx Aspirin/Acetaminophen/Caffeine 1 - 2 each PO BID PRN 01/20/17 01/20/17 Unknown History [[facility] Ex-Str Powder Packet] Alprazolam [Xanax] 0.5 mg PO BID PRN #60 tablet 01/22/17 Unknown Rx Amlodipine [Norvasc] 5 mg PO BID #60 tablet 01/22/17 Unknown Rx Carvedilol [Coreg] 50 mg PO BID #60 tablet 01/22/17 Unknown Rx Clonidine [Catapres] 0.3 mg PO TID #90 tablet 01/22/17 Unknown Rx Hydralazine [Apresoline] 100 mg PO TID #90 tablet 01/22/17 Unknown Rx Hydrochlorothiazide 12.5 mg PO BID #60 tablet 01/22/17 Unknown Rx Hydrocodone/APAP 5 mg/325 mg 1 each PO Q4H PRN PRN #25 tablet 01/22/17 Unknown Rx [[place]-5] Losartan [Cozaar] 50 mg PO BID #60 tablet 01/22/17 Unknown Rx - History of Present Illness-Resp Quality of Pain: reports: none Onset/Duration: reports: 4-6 hours ago Timing: reports: still present Context: reports: recent URI Exposure: reports: unknown cause Cough Quality/Degree: reports: severe Current Respiratory Medication Therapy: Initiated none Modifying Factors: improves with: exertion, lying down Associated Symptoms: reports: heart racing, shortness of breath, short of breath , sweaty Similar Symptoms Previously?: Yes Recently seen or treated by another doctor?: No Review of Systems - Adult - REVIEW OF SYSTEMS - ADULT ROS:: unobtainable per condition Constitutional: reports: no symptoms reported Eyes: reports: no symptoms reported Ears, Nose, Mouth & Throat: reports: no symptoms reported Cardiovascular: reports: no symptoms reported Respiratory: reports: dyspnea on exertion, excessive sputum production, shortness of breath Gastrointestinal: reports: no symptoms reported Genitourinary: reports: no symptoms reported Musculoskeletal: reports: no symptoms reported Integumentary: reports: other (SWEATY) Neurological: reports: no symptoms reported Psychiatric: reports: no symptoms reported Endocrine: reports: no symptoms reported Hematologic/Lymphatic: reports: no symptoms reported Allergic/Immunologic: reports: no symptoms reported All Other Systems: Reviewed and Negative Past History - Adult - PAST MEDICAL HISTORY-ADULT Review of Records: reports: Old Records Reviewed, Nursing Assessment Review, Medications Reviewed, Social history reviewed & non-contributory. Major Childhood Illnesses: reports: history unknown Cardiovascular: reports: HTN, hyperlipidemia Respiratory: reports: pneumonia Gastrointestinal: reports: GERD Obstetrical/Gynecological: reports: denies history Genitourinary: reports: denies history Musculoskeletal: reports: denies history Neurological: reports: denies history Endocrine/Immune: reports: Diabetes Other Conditions: reports: denies history - PRIOR SURGERIES/PROCEDURES Surgical/Procedure History: reports: reviewed, not pertinent - IMMUNIZATION STATUS Childhood Immunizations: See Nurse Assessment Flu Vaccine: See Nurse Assessment - FAMILY HISTORY Family History: reviewed, not pertinent - SOCIAL HISTORY Smoking: denies Substance Use: none/never Alcohol Use Frequency: occasionally Living Situation: family Physical Exam-General - PHYSICAL EXAM-ADULT Initial Vital Signs Reviewed: Yes - CONSTITUTIONAL General Appearance: severe distress, obese, anxious, slow to respond - EYES Eyes: PERRL/EOMI, pink conjunctivae - HEAD, EARS, NOSE, MOUTH & THROAT HENMT: normocephalic/atraumatic, moist mucous membranes, normal ENT inspection, TMs normal - NECK Neck: non-tender, full range of motion, supple - RESPIRATORY Respiratory: respiratory distress, decreased breath sounds, accessory muscle use , rales (BILATERALLY) - CARDIOVASCULAR Cardiovascular: no gallop, tachycardia, other (2+ PITTING EDEMA) - GASTROINTESTINAL (ABDOMEN) Abdominal Exam: non tender, distended - LYMPHATIC Lymphatic: no adenopathy - MUSCULOSKELETAL Back Exam: normal inspection, no CVA tenderness, no vertebral tenderness Extremity: normal range of motion, non-tender, swelling Peripheral Pulses: radial (R): 4+, radial (L): 4+ - SKIN Integumentary: diaphoresis - NEUROLOGIC Neurologic: grossly normal, no motor/sensory deficits - PSYCHIATRIC Psych/Mental Status: anxious, disheveled Progress - PLAN OF CARE/RESULTS Progress/Plan/Lab Results: Orders Category Date Time Status Admit - [facility] Routine AdmDCTranf 01/12/17 05:55 Ordered Activity - Bed Rest with BRP ORDERED Care 01/12/17 05:55 Active FSBS [Finger Stick Blood Sugar (ED)] DIRECTED Care 01/12/17 04:05 Completed [place] Cath Insertion ORDERED Care 01/12/17 04:16 Completed Resuscitation Status Routine Care 01/12/17 05:47 Ordered Saline Loc DIRECTED Care 01/12/17 05:55 Completed Vital Signs Order ROUTINE Care 01/12/17 05:55 Completed Z-Document. for Tele Applied ORDERED Care 01/12/17 06:19 Completed CHEST-PORTABLE [RAD] Stat Exams 01/12/17 04:05 Completed CK PROFILE [SP CHEM] Stat Lab 01/12/17 03:55 Completed COMPREHENSIVE METABOLIC PANEL [CHEM] Stat Lab 01/12/17 03:55 Completed TROPONIN T Stat Lab 01/12/17 03:55 Completed 0.9% Sodium Chloride Inj [Ns] 1,000 ml Med 01/12/17 04:33 Discontinued .ROUTE As Directed 0.9% Sodium Chloride Inj [Ns] 1,000 ml Med 01/12/17 04:53 Discontinued IV 30 mls/hr Enalaprilat [Vasotec] Med 01/12/17 03:55 Discontinued 1.25 mg .ROUTE .STK-MED ONE Enalaprilat [Vasotec] Med 01/12/17 04:01 Discontinued 1.25 mg IV NOW ONE Enalaprilat [Vasotec] Med 01/12/17 04:08 Discontinued 1.25 mg IV NOW ONE Furosemide [Lasix] Med 01/12/17 03:55 Discontinued 40 mg .ROUTE .STK-MED ONE Furosemide [Lasix] Med 01/12/17 04:00 Discontinued 40 mg IV NOW ONE Hydralazine [Apresoline] Med 01/12/17 04:22 Discontinued 10 mg IV NOW ONE Hydralazine [Apresoline] Med 01/12/17 04:21 Discontinued 20 mg .ROUTE .STK-MED ONE Morphine Med 01/12/17 05:55 Discontinued 2 mg IV Q2H PRN PRN Nitroglycerin Med 01/12/17 04:01 Discontinued 0.5 inch TOP NOW ONE Nitroglycerin Med 01/12/17 03:56 Discontinued 1 inch .ROUTE .STK-MED ONE Nitroglycerin 50 mg/D5w Med 01/12/17 04:06 Discontinued 50 mg in 250 ml IV 10 microgm/min Nitroglycerin 50 mg/D5w Med 01/12/17 05:55 Discontinued 50 mg in 250 ml IV 130 microgm/min Ondansetron [Zofran] Med 01/12/17 05:55 Discontinued 4 mg IV Q4H PRN PRN BIPAP Stat Oth 01/12/17 04:06 Completed BIPAP Stat Oth 01/12/17 05:55 Completed Telemetry [OM.EQ] Routine Oth 01/12/17 05:55 Active EKG [EKG] Stat Ther 01/12/17 04:04 Draft Transfer/Admit Order [TRANSFER] Routine Transfer 01/12/17 05:46 Completed Result Diagrams: 01/12/17 10:57 01/12/17 15:54 - EKG 1 Time of EKG reading by physician:: 03:55 EKG Read and Signed by:: Edu Kruse EKG Interpretation (*Must complete 3 of following elements*): Abnormal Rate: 113 Rhythm: SINUS NH Interval: normal ST Wave: elevated (SEPTAL LEADS MILD ELEVATION WITH LATERAL T WAVE INVERSION) Departure - Departure Date of Disposition Decision: 01/12/17 Time of Disposition Decision: 17:00 DIAGNOSIS: CHF (congestive heart failure) Qualifiers: Congestive heart failure type: combined Congestive heart failure chronicity: acute on chronic Qualified Code(s): I50.43 - Acute on chronic combined systolic (congestive) and diastolic (congestive) heart failure Disposition: ADMITTED INPATIENT 09 Certified Medical Emergency: Emergent Condition: Stable - Critical Care Note This patient required my direct & personal management of CC.: No
[2017-01-12] MEDS ORDERED: APRESOLINE ONE (04:21)
[2017-01-12] MEDS ORDERED: APRESOLINE IV ONE (04:22)
[2017-01-12] MEDS ORDERED: NS 1,000 ML ONE (04:33)
[2017-01-12 04:51] LABS: AGAP 16; ALKALINE PHOSPHATASE 150 U/L (32-122); BUN 25 mg/dL (8-22); CALCIUM 9.2 mg/dL (8.8-10.2); CHLORIDE 106 mmol/L (98-107); COSMO 296; POTASSIUM 4.1 mmol/L (3.5-5.1); SODIUM 142 mmol/L (136-145); TCO2 20 mmol/L (25-35); TOTAL BILIRUBIN < 0.15 mg/dL (0.20-1.00); TOTAL PROTEIN 7.3 g/dL (6.3-8.3)
--- NOTE | 2017-01-12 04:51 | EKG Report ---
Test Performed on : 01/12/2017 03:54:50 AM Test Reason : shortness of breath Blood Pressure : / mmHG Vent. Rate : 113 BPM Atrial Rate : 113 BPM P-R Int : 212 ms QRS Dur : 098 ms QT Int : 320 ms P-R-T Axes : 035 -38 086 degrees QTc Int : 438 ms Sinus tachycardia. with 1st degree AV block. Possible Left atrial enlargement Left axis deviation Septal infarct , age undetermined T wave abnormality, consider lateral ischemia Abnormal ECG No previous ECGs available Unconfirmed Result
[2017-01-12] MEDS ORDERED: NS 1,000 ML IV ONE (04:53)
[2017-01-12 05:03] LABS: GOT 11 U/L (10-34); GPT 11 U/L (10-44)
[2017-01-12] MEDS ORDERED: MORPHINE IV PRN (05:55)
[2017-01-12] MEDS ORDERED: ZOFRAN IV PRN ×2 (05:55→10:49)
--- NOTE | 2017-01-12 07:53 | Diag Imaging Result Doc PS360 ---
CHEST-PORTABLE - 01/12/2017 INDICATION: SOB TECHNIQUE: COMPARISON: 09/16/2016 FINDINGS: There is worsening opacification of the midlungs spaces bilaterally, left greater than right. Stable cardiomegaly and pulmonary vascular congestion. No pneumothorax or large effusion. IMPRESSION: 1. Worsening central infiltrates bilaterally, nonspecific but suggesting pulmonary edema or ARDS. 2. Stable cardiomegaly and pulmonary vascular congestion. Electronically signed by Estrada Shahid 01/12/2017 7:51 AM
[2017-01-12 08:26] LABS: BE -2.8 mmoll (-3.0-3.0); BLOOD TYPE ARTERIAL; DRAW SITE R RADIAL; METHB 0.6 % (0.0-1.5); O2(CT) 18.2 mL/dL (15.0-23.0); PCO2(98.6) 37 mmHg (35-45); PO2(98.6) 129 mmHg (60-100); SAMPLE BLOOD; SAO2 97.5 % (95.0-100.0); THB 13.3 g/dL (11.5-17.4); pH(98.6) 7.38 (7.35-7.45)
[2017-01-12 08:29] LABS: ALLEN TEST YES; MODALITY BI PAP
[2017-01-12] MEDS: MORPHINE IV PRN ×2 (08:40→21:23)
[2017-01-12] MEDS ORDERED: APRESOLINE IV PRN (10:38)
[2017-01-12] MEDS ORDERED: APRESOLINE PO SCH (10:45)
[2017-01-12] MEDS ORDERED: TYLENOL PO PRN (10:49)
[2017-01-12 11:13] LABS: HEMATOCRIT 35.9 % (42.0-52.0); HEMOGLOBIN 12.4 g/dL (14.0-18.0); MCH 25.3 PG (27-31); MCHC 34.5 g/dL (33-37); MCV 73.1 FL (81-99); MPV 10.8 FL (7.4-10.4); RBC 4.91 XMIL (4.7-6.1)
[2017-01-12] MEDS: APRESOLINE PO SCH ×3 (11:13→18:31)
[2017-01-12] MEDS: NICODERM PATCH TD PRN (11:13)
[2017-01-12] MEDS: LASIX IV SCH ×2 (11:13→21:14)
[2017-01-12] MEDS: CATAPRES PO SCH ×3 (11:14→18:31)
[2017-01-12] MEDS: COREG PO SCH ×2 (11:14→20:55)
[2017-01-12] MEDS: NORVASC PO SCH (11:17)
--- NOTE | 2017-01-12 11:26 | HISTORY AND PHYSICAL ---
CHIEF COMPLAINT: Shortness of breath. HISTORY OF PRESENT ILLNESS: This is a 51-year-old gentleman history of hypertension, diabetes presenting with uncontrolled hypertension, shortness of breath. Patient started having shortness of breath yesterday progressively worse over the last 1-2 days. He has noticed increasing lower extremity edema. Also increasing weight. He says he has gotten down to 291. His weight here has been around 302. He feels like he cannot get his breath but denies ulices orthopnea or PND. He came in with very elevated blood pressure for which he ended up being placed on nitroglycerin drip. This is a similar presentation when he came in, in August for uncontrolled hypertension. Initial blood pressure here to 279/164 or as high as. He has had issues intermittently with blood pressure prior to that. He had been on several medications. He has been following with Dr. Stevens but I think he did not follow up completely because he misinterpreted that he would need to do a 2 week urine test which I do not think is quite accurate but in any case, the patient had pulmonary edema, hypertensive emergency and he was admitted for further control. He denies any ulices chest pain or chest pressure. Other workup in the ER revealed a creatinine of 2.5 which has been the level he was at when he was discharged in August. It is usually around 2. PAST MEDICAL HISTORY: 1. Hypertension. 2. Diabetes. 3. Diastolic heart failure. 4. BPH. 5. Dyslipidemia and hypertriglyceridemia. 6. Diabetes for which he is supposed to be on Lantus. PAST SURGICAL HISTORY: He has had lipomas removed. No significant surgeries. FAMILY HISTORY: Positive for hypertension and diabetes. His mother of a heart attack and his father had throat cancer but was a heavy drinker and smoker. ALLERGIES: No known drug allergies. MEDICATIONS: He is on amlodipine 10, Coreg 25 b.i.d., Zyrtec 10, clonidine 0.2 t.i.d., glipizide, metformin 5/500 b.i.d., hydralazine 25 b.i.d., Prilosec 20 daily, simvastatin 20 daily. REVIEW OF SYSTEMS: Otherwise negative times a 10 point review of systems. PHYSICAL EXAMINATION: VITAL SIGNS: Blood pressure 186/115, heart rate of 88, respiratory rate 17, temperature 97.4 degrees, 93% on 4 L. GENERAL: A well-developed male, in no acute distress. HEENT: Head exam normocephalic atraumatic. EYES: Pupils equal, round, reactive to light. Extraocular movements were intact. EAR/NOSE/THROAT EXAM: Moist mucous membranes. NECK: Supple. CARDIOVASCULAR EXAM: Regular rate and rhythm. No murmurs, gallops, or rubs. PULMONARY EXAM: Bilateral breath sounds. Clear to auscultation. GI: Soft, nontender, nondistended. Bowel sounds are positive. EXTREMITIES: No clubbing or cyanosis. LYMPHATIC EXAM: Had 1+ pitting edema midshin. NEUROLOGICAL: Nonfocal. MUSCULOSKELETAL: Exam was 5/5 in all 4 extremities. He had 2+ [place] people pulses bilaterally. LABORATORY DATA: White count normal 6, hemoglobin and hematocrit and 11 and 34, platelets 145,000. Chemistries: BUN and creatinine 25 and 2.5. Sugars have been 259, 229. Troponin was negative. CK was normal. Blood gas actually looked okay, pH 7.38, pCO2 37, PaO2 129. EKG showed sinus tach. Chest x-ray showed pulmonary edema and vascular congestion. ASSESSMENT: A 51-year-old male with uncontrolled hypertension presenting with hypertensive emergency, pulmonary edema with possible diastolic heart failure exacerbation versus pulmonary edema associated with uncontrolled hypertension, hypertensive emergency and diabetes. PROBLEM LIST: 1. Hypertensive urgency. He is on a nitroglycerin drip. Resume his home medications. Increase his hydralazine to 75 t.i.d. That is in addition to clonidine, amlodipine. He is not on an GRIS at this point because of his renal insufficiency I imagine. We can go up on his hydralazine, consider addition of other medications. Wean off nitroglycerin as tolerated. He has had a secondary hypertension workup which was unremarkable last admission. I think this is primary essential hypertension. 2. Acute respiratory failure. Likely related pulmonary edema which was likely related to his hypertensive emergency. Could be underlying heart failure. We will repeat his echo, cardiac enzymes and follow. Wean off oxygen as tolerated. We will continue diuresis and monitor kidney function closely. 3. Chronic renal failure stage 3, looks like even stage 4. We will continue to monitor. Will go ahead and get the 24 hour urine clearance and protein. I am going to consult Renal service and follow. 4. Diabetes appears to be fairly well controlled. We will continue medications and monitor closely. 5. Disposition. He is in the ICU right now on nitroglycerin drip. Greater than 30 minute critical care time for hypertensive emergency, IV nitroglycerin. cc: MD Jose Maria Campbell MD Dr. Awoniyi
[2017-01-12] MEDS: HUMULIN R DOSE (PARKWAY) SUBQ SCH ×3 (11:29→20:54)
[2017-01-12 11:34] LABS: CALCIUM 8.4 mg/dL (8.8-10.2); POTASSIUM 4.2 mmol/L (3.5-5.1)
[2017-01-12] MEDS: NITROGLYCERIN 50 MG/D5W 50 MG/250 ML IV.SOLN IV SCH (15:20)
[2017-01-12] MEDS: HEPARIN SUBQ SCH (20:55)
[2017-01-12] MEDS ORDERED: ZOCOR PO SCH (21:00)
--- NOTE | 2017-01-12 21:09 | ECHO REPORT ---
ORDER DATE: 01/12/2017 INTERPRETING PHYSICIAN: Dr. Houser REQUESTING PHYSICIAN: CLINICAL INDICATIONS: A 51-year-old male with pulmonary edema, shortness of breath. M-MODE MEASUREMENTS: Right ventricle: 3.0 cm. Left ventricle end diastole: 4.1 cm. Left ventricle end systole: 2.5 cm. Posterior wall: 1.4 cm. Interventricular septum: 2.5 cm. Left atrium: 3.7 cm. Aortic root: 3.4 cm. SUMMARY OF 2-DIMENSIONAL IMAGING: This study is technically very difficult. The patient demonstrates a case of severe left ventricular hypertrophy with asymmetric hypertrophy of the septum. This is highly suspicious for hypertrophic obstructive cardiomyopathy or a variant of it. This study is really limited and the true thickness of the septum cannot be really ascertained, however, in some views it might be as much as 3 cm. The ejection fraction is supranormal and is visually estimated at 85-90%. The right ventricle is mildly enlarged. The aortic valve looks normal. Color flow mapping unremarkable. I do not see evidence of systolic anterior motion of the mitral valve. The mitral valve shows a mild degree of regurgitation. Pulse wave Doppler of mitral inflow shows mild reversal of the E and the A wave. The ratio is 0.8. Tissue Doppler of septal and lateral mitral annulus averages 6 cm per second. Pulmonary venous flow cannot be accurately evaluated. The pulmonic valve is grossly normal. The tricuspid valve shows a mild degree of regurgitation. The inferior vena cava is not dilated. Pulmonary pressure is estimated at 21-26 mmHg. The aortic valve looks normal. Color flow mapping unremarkable. There is no pericardial effusion, masses or thrombus. IMPRESSION: In summary, this study shows: 1. Severe left ventricular hypertrophy with suggestion of asymmetric hypertrophy of the interventricular septum raising concern for a case of obstructive hypertrophic cardiomyopathy or a related condition. 2. No diastolic dysfunction. 3. No pulmonary hypertension. 4. No evidence of any significant valvular abnormality. RECOMMENDATIONS: Consider referring this patient for cardiac magnetic resonance study for better assessment of possible case of asymmetric hypertrophy of the septum. If the septum is really 3 cm or greater in thickness, that increases the risk for sudden cardiac . Alternatively, a transesophageal echocardiogram could be performed if the patient is clinically stable. However, cardiac MR is superior for evaluation of this condition. Clinical correlation recommended. cc: MD Landry Mendoza MD
[2017-01-13 06:02] LABS: HEMOGLOBIN A1C 6.1 % (4.8-6.0)
[2017-01-13] MEDS: HUMULIN R DOSE (PARKWAY) SUBQ SCH ×3 (06:27→15:16)
[2017-01-13] MEDS ORDERED: PRILOSEC PO SCH (07:00)
[2017-01-13] MEDS ORDERED: DIABETA PO SCH (08:00)
[2017-01-13] MEDS: NORVASC PO SCH (08:03)
[2017-01-13] MEDS: COREG PO SCH (08:03)
[2017-01-13] MEDS: CATAPRES PO SCH ×2 (08:03→14:58)
[2017-01-13] MEDS: HEPARIN SUBQ SCH (08:04)
[2017-01-13] MEDS: APRESOLINE PO SCH (08:04)
[2017-01-13] MEDS ORDERED: M.V.I.-12 10 ML, FOLIC ACID 1 MG, MAGNESIUM SULFATE 1 GM, THIAMINE 100 MG in NS 1,000 ML IV ONE (08:47)
[2017-01-13] MEDS ORDERED: ZYRTEC PO SCH (09:00)
[2017-01-13] MEDS ORDERED: NS 1,000 ML IV SCH (10:00)
[2017-01-13] MEDS: NITROGLYCERIN 50 MG/D5W 50 MG/250 ML IV.SOLN IV SCH (10:16)
[2017-01-13] MEDS: NICODERM PATCH TD PRN (11:14)
[2017-01-13] MEDS: LASIX IV SCH (11:14)
--- NOTE | 2017-01-13 13:09 | CONSULTATION ---
DATE OF CONSULTATION: 01/13/2017 REASON FOR CONSULT: Accelerated hypertension, hypertrophic cardiomyopathy. HISTORY OF PRESENT ILLNESS: Mr. Jimmie Allen is a 51-year-old Afro-Citizen Of [place] gentleman with a history of severe hypertension, diabetes, uncontrolled hypertension, and hypertrophic cardiomyopathy, no significant obstructive coronary disease, comes with complaints of shortness of breath over the last 1-2 days. Patient has also noticed increasing edema. He says he has been taking his medications regularly. However, has noticed elevated blood pressures over the last few months. His blood pressures had been around 180 of late. It has gone up to 200. When he came to the emergency room his blood pressure was 270/160. Patient was subsequently admitted. The patient had a hypertensive emergency and features of shortness of breath and his chest x-ray revealed pulmonary edema. The and patient was given IV Lasix and admitted. The patient denies chest pain. There are no palpitations or syncope. REVIEW OF SYSTEMS: A 14 point review of systems was done.GI system: There is no history of nausea, vomiting, or diarrhea. There is no history of hematemesis or melena. Central nervous system: No focal weakness to suggest a CVA or TIA. Genitourinary system: There is no dysuria or hematuria. Respiratory system: As above. Endocrine system: 1. Stable. PAST MEDICAL HISTORY: Renal insufficiency. 1. History of ventricular tachycardia in the past. 2. Abnormal echocardiogram with severe symmetric left ventricular hypertrophy. 3. MRI done on 08/14/2015. MRI of the heart revealed extensive patchy mid valve fibrosis which is not suggestive of. Amyloidosis and it does not favor amyloidosis. There was no subacute aortic stenosis noted either on the MRI scan. Ejection fraction by MRI was 59%. 4. Cardiac catheterization 04/09/2015. Left main normal. LAD proximal 10% lad mid 15% circumflex 10% RCA dominant normal 55%. 5. Echocardiogram in 2014 revealed severe left ventricular systolic hypertrophy with a preserved left ventricular , hyperdynamic left ventricular systolic function. Echocardiogram done 01/12/2017 revealed severe left ventricular hypertrophy with asymmetric hypertrophy with ejection fraction of 85%. No significant valvular regurgitation. 6. Hypertension. 7. Hyperlipidemia. 8. Hypertriglyceridemia. 9. Diabetes. 10. Renal insufficiency. 11. Gastroesophageal reflux disease. 12. Morbid obesity. 13. Sleep apnea. HOME MEDICATIONS: Include clonidine 0.2 kg p.o. t.i.d., amlodipine 10, simvastatin 10, glipizide metformin 1 p.o. b.i.d., Coreg 25 p.o. b.i.d., omeprazole 20, hydralazine 75 mg p.o. b.i.d. ALLERGIES: He is not known to be allergic to any medication. PAST SURGICAL HISTORY: He has had a lipoma removed. FAMILY HISTORY: Positive for hypertension, diabetes. Mother of a heart attack and his father had throat cancer. PHYSICAL EXAMINATION: Vital Signs: Blood pressure at the time of my examination was 175/90. Cardiovascular System: Normal jugular venous pressure. There is no thyromegaly. There is no carotid bruit. First and second heart sounds heard. There is no S3 gallop. Respiratory System: Normal air entry. There are no crepitations or rhonchi. Abdomen: Soft, nontender. There was no guarding or rigidity. Bowel sounds were heard. Central nervous system: Alert. Was moving all 4 extremities. Extremities: Examination of extremities revealed trace edema. ASSESSMENT AND PLAN: 1. Mr. Jimmie Allen is a 51-year-old gentleman who has had ventricular tachycardia in the past and no significant obstructive coronary artery disease by cardiac catheterization in 2015, has severe left ventricular hypertrophy. MRI scan of his heart revealed patchy fibrosis not particular for any particular disease process. Echocardiogram revealed asymmetric hypertrophy with left ventricular ejection fraction of 85%. He also has diabetes and hyperlipidemia. He has noticed increasing shortness of breath with pedal edema. He is admitted with accelerated hypertension with features of diastolic heart failure. With Lasix he has improved significantly. 2. As far as his hypertension is concerned, we will make the following changes. I will discontinue the amlodipine and given his hyperdynamic left ventricular systolic function with significant severe hypertrophic cardiomyopathy, I will add verapamil 240 mg to his medical regimen instead of Norvasc. We will continue with other medications and increase the dose of hydralazine from 75 to 100 mg 3 times a day. 3. He has chronic renal insufficiency and Dr. Stevens has been consulted. From a cardiac standpoint, as far as the cardiac enzymes are concerned, they were negative. Electrocardiogram revealed left ventricular hypertrophy with nonspecific ST-T changes. 4. He is euvolemic currently. We will discontinue the Lasix and put him on Lasix 40 mg a day. Thank you for the consult. We will follow the hospital course. cc: Godwin Camilo MD
--- NOTE | 2017-01-13 14:40 | CONSULTATION ---
DATE OF CONSULTATION: 01/13/2017 REASON FOR CONSULTATION: Chronic kidney disease. HISTORY OF PRESENT ILLNESS: Mr. Allen is a 51-year-old black man, who is well known to me. We saw him back in August when he was admitted to the hospital with hypertensive crisis. Baseline creatinine is 2. He did not keep his followup with us. We had started him on amlodipine, but this medication prescription ran out and he did not get it refilled. His blood pressure he states continued to be okay until the last several days when his pressure became much more elevated. He developed progressive shortness of breath over the 2 days leading to admission. He also had increasing swelling in the lower extremities. Weight chanel approximately 10 pounds. Because of his worsening symptoms, he sought attention in the emergency room where his blood pressure was markedly elevated at 279/164. His creatinine was marginally above baseline at 2.5. On this basis, he was admitted to the hospital and treated with parenteral therapy for his hypertension as well as supplemental oxygen and other as needed medication. His blood pressure responded to enalaprilat, IV nitroglycerin, IV Apresoline, etc. His blood pressure improved from systolic of 240 to 280 on admission to 160 to 180 after the first 3 hours of treatment. His symptoms have resolved, and he is on room air. He is off of the IV nitroglycerin at this point. His home medications have been titrated by replacing amlodipine with verapamil. He has no chest pains, palpitations, shortness of breath, cough, fever, chills, nausea, vomiting, etc. PAST MEDICAL HISTORY: 1. Hypertension. 2. CKD, stage 3. 3. Diabetes. 4. Diastolic heart failure. 5. BPH. 6. Hyperlipidemia. HOME MEDICATIONS: 1. Amlodipine. 2. Carvedilol. 3. Zyrtec. 4. Glipizide. 5. Metformin. 6. Hydralazine. 7. Simvastatin. 8. Omeprazole. ALLERGIES: None. SOCIAL HISTORY: He has a large extended family that are involved. FAMILY HISTORY: Positive for ESRD. REVIEW OF SYSTEMS: Otherwise noncontributory. PHYSICAL EXAMINATION: Vital Signs: Blood pressure 160/76, heart rate 67, respirations 16, afebrile. General: He is an obese man lying at 45 degrees in no distress. Skin: Warm and dry. Conjunctivae are pink. Pupils are equal. Oropharynx is clear. Normal tongue. Normal dentition. Neck: Supple. Trachea is midline. No jugular venous distention. Heart: Regular with S4. No S3. No rubs or murmurs. Lungs: Have equal breath sounds. No crackles or wheezes. Abdomen: Obese and soft. Bowel sounds are present. No organomegaly. Extremities: Have 1+ edema. No clubbing or cyanosis. LABORATORY DATA: Sodium 137, potassium 4.2, chloride 103, bicarbonate 22. BUN 29, creatinine 2.0. Hemoglobin 12.4. IMPRESSION: 1. Hypertensive acute diastolic heart failure, improved with treatment. His medication has been titrated and blood pressure control has improved. He is no longer requiring supplemental oxygen. He is on an oral regimen at this point. From my perspective, he can be discharged home and follow carefully with us. I have reviewed this with him. 2. Chronic kidney disease, stage 3. His creatinine is back to his historical baseline. A 24- hour urine is in process. We will follow this up as an outpatient in the office. cc: Jose Maria Stevens MD
[2017-01-13] MEDS ORDERED: APRESOLINE PO SCH (15:00)
[2017-01-13 15:53] VITALS: BP 166/76
[2017-01-13 16:14] LABS: UR CREATININE 82.7 mg/dL (14-26); UR CREATININE TOTAL 2129.5 mg/24 (800-1800); UR PROTEIN 136.3 mg/dL
--- NOTE | 2017-01-13 17:48 | DISCHARGE SUMMARY ---
ADMISSION DATE: 01/12/2017 DISCHARGE DATE: 01/13/2017 PRIMARY CARE PHYSICIAN: None. WATER TREATMENT TECHNICIAN: Dr. Camilo. SILVERER: Dr. Stevens. ADMISSION DIAGNOSES: 1. Hypertensive urgency. 2. Acute respiratory failure. 3. Chronic renal failure stage 3 to 4. 4. Diabetes. DISCHARGE DIAGNOSES: 1. Hypertensive urgency resolved. 2. Hypertension malignant. 3. Acute respiratory failure resolved. 4. Chronic renal failure stage 3 to 4. 5. Diabetes type 2. SUMMARY OF FINDINGS: This is a 51-year-old male who presents to the emergency room with complaints of shortness of breath that progressively worsened over the last 1-2 days. He also noted increasing lower extremity edema and increasing weight. He says he had gotten down to as low as 291 pounds. When he got here, he weighed 302 and felt like he could not get his breath but denied any ulices orthopnea or PND. His blood pressure was elevated on arrival at 279/164. He was started on a nitroglycerin drip. He was noted to have pulmonary edema. He was admitted to the intensive care unit. Cardiology was consulted. He was placed on O2 per protocol. He was given Lasix IV for diuresis. Cardiology discontinued his amlodipine and placed him on verapamil 240 mg daily and increased his dose of hydralazine to 100 mg 3 times a day. A 24 hour urine was collected and that was completed today at 3:30 p.m. so we do not have those results. He was seen by Dr. Stevens today. From his perspective, he could be discharged and the 24 hour urine followed up on outpatient basis. He is off the nitroglycerin drip. His blood pressures are much improved at 166/76 currently. It is felt that he can safely be discharged home. DISCHARGE MEDICATIONS: 1. Coreg 25 mg p.o. b.i.d. 2. Zyrtec 10 mg p.o. daily. 3. Clonidine 0.2 mg p.o. t.i.d. 4. Lasix 40 mg p.o. daily #30 with 2 refills. 5. Glipizide/metformin 5/500 one p.o. b.i.d. 6. Hydralazine 100 mg p.o. t.i.d. #90 with 2 refills. 7. Omeprazole 20 mg p.o. daily. 8. Simvastatin 20 mg p.o. daily. FOLLOWUP: He will follow up with Dr. Camilo in 1 to 2 weeks and call the office for an appointment. Follow up with Dr. Stevens in 1-2 weeks. Call the office for an appointment. All discharge instructions have been reviewed with the patient and he verbalizes understanding. TIME SPENT: 35 minutes. Dictated by EVON Ragland for Abraham Rodriguez MD cc: MD Larisa Siddiqi CRNP Gregory S. Cheatham, MD
[2017-01-14] MEDS ORDERED: ISOPTIN SR PO SCH (09:00)
[2017-01-14] MEDS ORDERED: LASIX PO SCH (09:00)
== END 2017-01-13 17:05 | disposition home or self-care (01) ==
LOC: P.ED 03:47 → P.ICU 06:08 → SUATTDRO 06:08
PROVIDERS: ATTEND Family Medicine

== ENCOUNTER 2017-01-19 15:15 | Inpatient (IN) ==
[2017-01-19] MEDS ORDERED: APRESOLINE IV ONE (15:43)
--- NOTE | 2017-01-19 15:54 | EKG Report ---
Test Performed on : 01/19/2017 3:40:05 PM Test Reason : htn icu last week Blood Pressure : / mmHG Vent. Rate : 063 BPM Atrial Rate : 063 BPM P-R Int : 218 ms QRS Dur : 112 ms QT Int : 460 ms P-R-T Axes : 029 -27 118 degrees QTc Int : 470 ms Sinus rhythm. with 1st degree AV block. Septal infarct (cited on or before 12-JAN-2017) T wave abnormality, consider lateral ischemia Abnormal ECG When compared with ECG of 12-JAN-2017 03:54, Vent. rate has decreased BY 50 BPM Serial changes of Septal infarct present Unconfirmed Result
[2017-01-19 15:55] LABS: BASO% 0.2 % (0.0-0.8); EOS# 0.36 X1000 (0.0-0.7); EOS% 4.3 % (0.0-10.0); HEMATOCRIT 40.1 % (42.0-52.0); HEMOGLOBIN 13.8 g/dL (14.0-18.0); IMM GRAN# 0.02 X1000 (0.0-0.04); IMM GRAN% 0.2 % (0.0-0.5); LYMPH# 3.03 X1000 (1.2-3.4); LYMPH% 36.4 % (20.5-51.1); MCH 24.9 PG (27-31); MCHC 34.4 g/dL (33-37); MCV 72.4 FL (81-99); MONO# 0.57 X1000 (0.11-0.59); MONO% 6.8 % (1.7-9.3); MPV 10.2 FL (7.4-10.4); NEUT% 52.1 % (42.2-75.2); PLT 216 X1000 (130-400); RBC 5.54 XMIL (4.7-6.1)
[2017-01-19 15:59] LABS: MANUAL DIFF NEEDED? YES
[2017-01-19 16:01] LABS: EOS 3 % (1-10); LYMPHS 38 % (21-51); MONO 4 % (1-9)
[2017-01-19 16:07] LABS: ALBUMIN 3.8 g/dL (3.5-5.0); TOTAL BILIRUBIN 0.2 mg/dL (0.20-1.00); TOTAL PROTEIN 7.4 g/dL (6.3-8.3)
--- NOTE | 2017-01-19 16:10 | ED EKG INTERP ---
This chart was entered by Lynn Worthy Scribe, acting as scribe for Chetan Awan MD. EKG Interpretation - EKG Time of EKG reading by physician:: 15:40 EKG Read and Signed by:: Chetan Awan EKG Interpretation (*Must complete 3 of following elements*): Abnormal (T wave abnormality, consider lateral ischemia) Rate: 63 Rhythm: sinus rhythm with 1st degree AV block Comments: septal infarct, age undetermined; This chart was documented by the indicated scribe, (Lynn Worthy Scribe) and accurately reflects the services I performed and decisions made by me, Chetan Awan MD, as attested by the provider's signature.
--- NOTE | 2017-01-19 16:28 | Diag Imaging Result Doc PS360 ---
EXAM: CHEST-2 VIEWS HISTORY: htn TECHNIQUE: PA and Lateral chest x-ray COMPARISON: 01/12/2017 FINDINGS: There is stable cardiomegaly. Mild central vascular congestion is noted. There has been a suboptimal inspiratory result. Suspect mild basilar infiltrates left greater than right similar in appearance to the prior study 08/24/2016. There is minimal blunting of the left lateral costophrenic angle consistent with a small amount of pleural fluid or thickening. IMPRESSION: Suspect subtle basilar infiltrates. Likely mild cardiogenic edema. Correlate clinically. Electronically signed by Shoshana Johnson 01/19/2017 4:26 PM
[2017-01-19] MEDS ORDERED: CARDIZEM ONE (16:37)
[2017-01-19] MEDS ORDERED: CARDIZEM IV ONE (16:38)
--- NOTE | 2017-01-19 17:00 | EKG Report ---
Test Performed on : 01/19/2017 4:39:06 PM Test Reason : Repeat Blood Pressure : / mmHG Vent. Rate : 070 BPM Atrial Rate : 070 BPM P-R Int : 218 ms QRS Dur : 098 ms QT Int : 444 ms P-R-T Axes : 028 -34 109 degrees QTc Int : 479 ms Sinus rhythm. with 1st degree AV block. Possible Left atrial enlargement Left axis deviation Septal infarct (cited on or before 12-JAN-2017) T wave abnormality, consider lateral ischemia Abnormal ECG When compared with ECG of 19-JAN-2017 15:40, (Unconfirmed) No significant change was found Unconfirmed Result
--- NOTE | 2017-01-19 17:22 | PROVIDER DOCUMENTATION ---
This chart was entered by Lynn Worthy Scribe, acting as scribe for Chetan Awan MD. HPI-General Adult - General Chief Complaint: B/P Problems Stated Complaint: HIGH BP 208/130 Time Seen by Provider: 01/19/17 15:37 Source: patient Allergies/Adverse Reactions: Patient Allergies Allergy/AdvReac Type Severity Reaction Status Date / Time No Known Allergies Allergy Verified 01/12/17 05:08 Home Medications: Home Medication List Medication Instructions Recorded Confirmed Last Taken Type Clonidine [Catapres] 0.2 mg PO TID 10/18/13 01/12/17 08/20/16 History Cetirizine [Zyrtec] 1 tab PO DAILY 09/16/16 01/12/17 Unknown History Carvedilol [Coreg] 25 mg PO BID 01/12/17 01/12/17 Unknown History Glipizide/Metformin HCl 1 each PO BID 01/12/17 01/12/17 Unknown History [Glipizide-Metformin 5-500 mg] Omeprazole 20 mg PO DAILY 01/12/17 01/12/17 Unknown History SIMVAstatin [Zocor] 20 mg PO DAILY 01/12/17 01/12/17 Unknown History Furosemide [Lasix] 40 mg PO DAILY #30 tablet 01/13/17 Unknown Rx Hydralazine [Apresoline] 100 mg PO TID #90 tablet 01/13/17 Unknown Rx Verapamil S.r. [Isoptin Sr] 240 mg PO DAILY #30 tablet 01/13/17 Unknown Rx - History of Present Illness -Gen Adult Nature of Presenting Problems: Pt is 51 y/o M presents to the ED with hypertension. Pt states he was at his PCP 's office and PCP sent Pt here due to HTN. Pt states he is on 4 different kinds of HTN meds. Pt states was recently admitted to hospital for HTN. Pt denies headache. Pt states BP runs high all the time. Pt states HTN for 10 to 15 yrs. Pt states he did not miss a dose of HTN meds today. Pt states has had ever cardio test done and all negative. Location of Pain/Injury: reports: none Pain Radiation: reports: no radiation Quality of Pain: reports: none Onset/Duration: reports: unsure Timing: reports: still present Context/Activities at Onset: reports: light activity Modifying Factors: improves with: nothing Associated Symptoms: reports: denies symptoms Similar Symptoms Previously?: Yes Recently seen or treated by another doctor?: Yes Review of Systems - Adult - REVIEW OF SYSTEMS - ADULT Constitutional: reports: no symptoms reported Eyes: reports: no symptoms reported Ears, Nose, Mouth & Throat: reports: no symptoms reported Cardiovascular: reports: no symptoms reported Respiratory: reports: no symptoms reported Gastrointestinal: reports: no symptoms reported Genitourinary: reports: no symptoms reported Musculoskeletal: reports: no symptoms reported Integumentary: reports: no symptoms reported Neurological: reports: no symptoms reported Psychiatric: reports: no symptoms reported Endocrine: reports: no symptoms reported Hematologic/Lymphatic: reports: no symptoms reported Allergic/Immunologic: reports: no symptoms reported All Other Systems: Reviewed and Negative Past History - Adult - PAST MEDICAL HISTORY-ADULT Review of Records: reports: Nursing Assessment Review, Medications Reviewed, Social history reviewed & non-contributory. Major Childhood Illnesses: reports: history unknown Cardiovascular: reports: HTN, hyperlipidemia Respiratory: reports: pneumonia, sleep apnea Gastrointestinal: reports: GERD Obstetrical/Gynecological: reports: denies history Genitourinary: reports: denies history Musculoskeletal: reports: denies history Neurological: reports: denies history Endocrine/Immune: reports: Diabetes Diabetes Type: Type 2 Other Conditions: reports: denies history - PRIOR SURGERIES/PROCEDURES Surgical/Procedure History: reports: reviewed, not pertinent - IMMUNIZATION STATUS Childhood Immunizations: See Nurse Assessment Flu Vaccine: See Nurse Assessment - FAMILY HISTORY Family History: reviewed, not pertinent - SOCIAL HISTORY Smoking: cigarettes, less than 1 pack/day Provider spent 3-5 mins advising pt. on dangers of tobacco.: Discussed manners to quit use, and f/u contacts for add'l counseling. Substance Use: denies Living Situation: family Physical Exam-General - PHYSICAL EXAM-ADULT Initial Vital Signs Reviewed: Yes - CONSTITUTIONAL General Appearance: appears well, alert, no apparent distress - EYES Eyes: PERRL/EOMI, pink conjunctivae - HEAD, EARS, NOSE, MOUTH & THROAT HENMT: normocephalic/atraumatic, moist mucous membranes, normal ENT inspection - NECK Neck: non-tender, full range of motion, supple, normal inspection - RESPIRATORY Respiratory: chest non-tender, lungs clear, normal breath sounds - CARDIOVASCULAR Cardiovascular: normal peripheral pulses, regular rate, rhythm - GASTROINTESTINAL (ABDOMEN) Abdominal Exam: normal bowel sounds, non tender, soft - LYMPHATIC Lymphatic: no adenopathy - MUSCULOSKELETAL Back Exam: normal inspection, no CVA tenderness, no vertebral tenderness Extremity: normal range of motion, non-tender, normal gait, normal inspection - SKIN Integumentary: normal color, normal turgor, warm/dry - NEUROLOGIC Neurologic: grossly normal - PSYCHIATRIC Psych/Mental Status: normal mood/affect, oriented x 3 Progress - PLAN OF CARE/RESULTS Progress/Plan/Lab Results: Vital Signs - 8 hr 01/19/17 15:22 Temperature 98 F Pulse Rate 65 Respiratory Rate 18 Blood Pressure 221/124 O2 Sat by Pulse Oximetry 98 Laboratory Results - last 24 hr 01/19/17 15:40 WBC 8.33 RBC 5.54 Hgb 13.8 L Hct 40.1 L MCV 72.4 L MCH 24.9 L MCHC 34.4 RDW Std Deviation 15.3 H Plt Count 216 MPV 10.2 Immature Gran % (Auto) 0.2 Neut % (Auto) 52.1 Lymph % (Auto) 36.4 Ripley % (Auto) 6.8 Eos % (Auto) 4.3 Baso % (Auto) 0.2 Immature Gran # (Auto) 0.02 Neut # (Auto) 4.33 Lymph # (Auto) 3.03 [place]y # (Auto) 0.57 Eos # (Auto) 0.36 Baso # (Auto) 0.02 Segmented Neutrophils 55 Lymphocytes 38 Monocytes 4 Eosinophils 3 Microcytosis 3+ Orders Category Date Time Status Cardiac Monitoring DIRECTED Care 01/19/17 15:32 Active Saline Loc NOW Care 01/19/17 15:32 Active CHEST-2 VIEWS [RAD] Stat Exams 01/19/17 15:34 Taken CBC WITH DIFF [HEME] Stat Lab 01/19/17 15:40 Completed CK PROFILE [SP CHEM] Stat Lab 01/19/17 15:40 Received COMPREHENSIVE METABOLIC PANEL [CHEM] Stat Lab 01/19/17 15:[address] Received D-D[address] [COAG] Stat Lab 01/19/17 15:40 Received PRO B-NATRIURETIC PEPTIDE Stat Lab 01/19/17 15:40 Received TROPONIN T Stat Lab 01/19/17 15:40 Received Hydralazine [Apresoline] Med 01/19/17 15:43 Discontinued 20 mg IV NOW ONE EKG [EKG] Stat Ther 01/19/17 15:33 Draft Result Diagrams: 01/19/17 15:40 01/19/17 15:40 - EKG 1 Time of EKG reading by physician:: 16:39 EKG Read and Signed by:: Chetan Awan EKG Interpretation (*Must complete 3 of following elements*): Abnormal (septal infarct, age undetermined; T wave abnormality, consider lateral ischemia) Rate: 70 Rhythm: sinus rhythm with 1st degree AV block Comments: possible left atrial enlargement; left axis deviation - XRAY 1 XRAY Study: Chest Impression: Abnormal (likely mild cardiogenic edema. correlate clinically) XRAY Interpretation: suspect subtle basilar inflitrates. - CONSULTS/PCP/HOSPITALIST Notification #1 *Consult/PCP/Hospitalist*: Dr. Rodriguez Time Discussed: 17:14 (Hospitalish accepted admit ) Reason/Comments: Dr. Awan consulted with Dr. Rodriguez about admit of Pt Consult Disposition: Admit Departure - Departure Date of Disposition Decision: 01/19/17 Time of Disposition Decision: 17:14 DIAGNOSIS: Hypertensive urgency, Renal insufficiency, CHF (congestive heart failure) Disposition: ADMITTED INPATIENT 09 Certified Medical Emergency: Emergent Condition: Stable Referrals and Follow-Ups: Jose Maria Stevens MD [Primary Care Provider] - - Critical Care Note This patient required my direct & personal management of CC.: Yes Total Time (mins): 45 Critical Care Statement: This patient required my direct personal management to treat or rule out processes, the absence of which, could potentiallly result in sudden, clinically significant life or limb threatening deterioration. This chart was documented by the indicated scribe, (Lynn Worthy Scribe) and accurately reflects the services I performed and decisions made by me, Chetan Awan MD, as attested by the provider's signature.
[2017-01-19] MEDS ORDERED: NS 1,000 ML ONE (17:54)
[2017-01-19] MEDS: NS 1,000 ML IV SCH (18:14)
[2017-01-19] MEDS: NITROGLYCERIN 50 MG/D5W 50 MG/250 ML IV.SOLN IV SCH (19:00)
[2017-01-19] MEDS: TYLENOL PO PRN (21:10)
[2017-01-20] MEDS: TYLENOL PO PRN (03:13)
[2017-01-20] MEDS ORDERED: CATAPRES PO ONE (05:36)
[2017-01-20] MEDS: NITROGLYCERIN 50 MG/D5W 50 MG/250 ML IV.SOLN IV SCH (05:42)
[2017-01-20] MEDS ORDERED: COZAAR PO ONE (06:44)
[2017-01-20] MEDS ORDERED: PNEUMOVAX 23 IM ONE (07:00)
[2017-01-20] MEDS: APRESOLINE PO SCH ×4 (07:34→16:29)
[2017-01-20] MEDS: ZYRTEC PO SCH ×2 (07:35→08:24)
[2017-01-20] MEDS: GLUCOTROL PO SCH ×2 (07:35→16:29)
[2017-01-20] MEDS: PRILOSEC PO SCH ×2 (07:35→08:23)
[2017-01-20] MEDS: LASIX PO SCH ×2 (07:35→08:23)
[2017-01-20] MEDS: GLUCOPHAGE PO SCH ×2 (07:35→16:29)
[2017-01-20] MEDS: CATAPRES PO SCH ×4 (07:36→16:29)
[2017-01-20] MEDS: ZOCOR PO SCH ×2 (07:36→08:23)
[2017-01-20] MEDS: COREG PO SCH ×3 (07:36→20:07)
[2017-01-20] MEDS: ISOPTIN SR PO SCH ×2 (07:36→08:23)
--- NOTE | 2017-01-20 08:58 | PROGRESS NOTE ---
DATE: 01/20/2017 SUBJECTIVE: Patient without any new complaints today. Denies any chest pain, palpitations. Does states that his bilateral lower extremities hurt, but this is not unusual for him. Denies any focalized weakness. OBJECTIVE: Vital Signs: Reviewed. Temperature 97 degrees, pulse 83, respiratory 16, BP 224/112 to 204/113 on Nipride trip, maximum dose. HEENT: Normocephalic, atraumatic. Neck: Supple. CV: Regular rate. Chest: Relatively clear. Abdomen: Soft. Extremities: Moves all extremities well. Neurologic: No focal changes. Patient is awake, alert, oriented. Speech is regular. Memory is intact. He is pleasant to talk with. Skin: Warm, dry, no rash. LABS: CBC and CMP essentially normal with a D-dimer at 0.74, creatinine at 2.1 which is his baseline back to July of 2016. ASSESSMENT: 1. Elevated D-dimer of uncertain etiology. We will check ultrasound of lower extremities. We cannot check a CTA with his creatinine. May need a V/Q scan. 2. Malignant hypertension. Patient's blood pressure is markedly elevated. He is maxed out a Nipride drip. We will restart all of his home medications, which include Coreg 25 twice a day, clonidine 0.2 three times a day, Lasix, hydralazine 100 three times a day, verapamil 240 once a day. We will add losartan 100. PLAN: We will consult cardiology for assistance with blood pressure control. He has had a recent echocardiogram. cc: Abraham Rodriguez MD
[2017-01-20] MEDS ORDERED: METFORMIN HCL PO SCH (09:00)
[2017-01-20] MEDS ORDERED: GLIPIZIDE PO SCH (09:00)
[2017-01-20] MEDS: NS 1,000 ML IV SCH ×2 (11:07→14:55)
--- NOTE | 2017-01-20 14:26 | CONSULTATION ---
DATE OF CONSULTATION: 01/20/2017 CHIEF COMPLAINT: Hypertensive urgency. REASON FOR CONSULTATION: Severe hypertension. HISTORY OF PRESENT ILLNESS: Mr. Allen is a pleasant 51-year-old black gentleman that is known to us from previous office and also hospital evaluations. Mr. Allen stated that he was checking his blood pressure at home and noted that his numbers were very high. He went to see his primary doctor, Dr. Ross, and in turn Dr. Ross confirmed that the blood pressure numbers were very elevated and recommended to stop by the E.R. and get treated. In the E.R. his blood pressure initially was 221/124 and subsequently 232/133 and thereafter it has been fluctuating from a high of 217 to a low of 148. At any rate, they put him on IV nitroglycerin and admitted to the ICU for further management. The patient has stated that he did not notice any chest pain, shortness of breath, palpitations, dizziness, diaphoresis, abdominal pain, vomiting, nausea, headache, etc. He was really asymptomatic. PAST MEDICAL HISTORY: His past history is positive for the fact that he has indeed had severe hypertension for a long time. He has been very obese up to 330 pounds in the past and now he is 294 pounds. He has diabetes mellitus type 2. He has hyperlipidemia. His hypertension has been an issue and his echocardiogram has suggested the possibility that he may have a form of hypertrophic cardiomyopathy and for that reason he was sent to have a cardiac MR in July of 2015 which showed a pattern of fibrosis that was not typical of the classical hypertrophic cardiomyopathy syndrome. He does have chronic kidney disease. He has sleep apnea syndrome and a heart catheterization performed on him in 2014 because of an abnormal stress test showed only a mild degree of coronary artery disease. PAST SURGICAL HISTORY: He has had neck surgery in the past. SOCIAL HISTORY: He is . He works at [employer]. He has children. He is not a smoker and not a drinker. FAMILY HISTORY: Mother with hypertension. HOME MEDICATIONS: His home medications listed at the time of this visit include simvastatin 20 mg daily, clonidine 0.2 mg three times a day, Zyrtec 1 tablet daily, verapamil 240 mg daily, hydralazine 100 mg three times a day, furosemide 40 mg daily, omeprazole 20 mg daily, glipizide metformin 5 mg/500 mg twice a day, and carvedilol 25 mg twice daily. ALLERGIES: He reports no allergies to medicines. REVIEW OF SYSTEMS: His review of systems is really noncontributory other than the fact that his blood pressure runs high and he monitors that. The patient is capable of performing his usual activities at [employer] which are physical. He takes care of housekeeping. PHYSICAL EXAMINATION: VITAL SIGNS: Right now his blood pressure is 148/78, temperature 98.8, pulse 66 , and respirations 16. GENERAL: He is awake, alert, oriented, and in no distress. HEENT: Unremarkable. CHEST: Clear to auscultation and percussion. CARDIOVASCULAR: Heart sounds are regular and rhythmic. I do not hear a gallop or murmur. ABDOMEN: The abdomen is nontender and soft. No masses. No hepatomegaly. I do not her any bruit. EXTREMITIES: The extremities show bounding pulses in the upper and lower extremities. NEUROLOGICAL: He moves all extremities and follows commands. He has no deficits. LABORATORY DATA: His blood work from admission showed a sodium is 135, potassium 4, chloride 98, carbon dioxide 22, BUN 25, and creatinine 2.1. ProbBNP is 4770 pg/ml. Troponin is 0.027. Hemoglobin is 13.8 and white cell count 8,330. IMPRESSION: 1. Patient who presents with a very severe case of hypertension. This on the other hand has happening in an asymptomatic fashion. 2. History of severe left ventricular hypertrophy mimicking hypertrophic cardiomyopathy. 3. Diabetes mellitus. 4. Sleep apnea syndrome. 5. Hyperlipidemia. 6. Abnormal EKG. His EKG on January 19 showed a sinus rhythm, possible septal infarct, left axis, and diffuse T wave abnormality consistent with hypertension. 7. chronic "compensated" diastolic heart failure secondary to hypertensive heart disease (pro BNP in the 4,700 range) 8. Chronic kidney disease, stage III-B. This EKG has not evolved and it looks similar to the previous ones. In addition, the chest x-ray shows possible early pulmonary congestion/ vascular congestion. RECOMMENDATION: At this point in time we will try to tweak his medications some. I would probably suggest a twice a day dosage for his medicines including losartan 50 mg twice a day, amlodipine 5 mg twice a day, Coreg would be increased to 50 mg twice a day, and I would probable stop Isoptin. We will request a follow-up lipid panel on him and upon discharge he should probably go straight to the sleep lab and do a follow-up sleep study and then determine whether or not he needs to get a CPAP mask and make adjustments to it. Thank you again for the opportunity to participate in his evaluation. Best Regards. cc: Ken Houser MD MTDD
[2017-01-20] MEDS: LABETALOL IV PRN ×3 (14:59→16:28)
[2017-01-20] MEDS ORDERED: NORCO-5 PO PRN (16:45)
[2017-01-20] MEDS ORDERED: NITROGLYCERIN 50 MG/D5W 50 MG/250 ML IV.SOLN IV SCH (18:04)
[2017-01-20] MEDS: COZAAR PO SCH (20:07)
[2017-01-20] MEDS: NORVASC PO SCH (20:08)
[2017-01-20] MEDS: HUMALOG DOSE (PARKWAY) SUBQ SCH (21:26)
[2017-01-21] MEDS: HUMALOG DOSE (PARKWAY) SUBQ SCH ×4 (06:06→21:40)
[2017-01-21 06:12] LABS: HEMOGLOBIN 11.4 g/dL (14.0-18.0); MCH 25.3 PG (27-31); MCHC 34.5 g/dL (33-37); MCV 73.2 FL (81-99); MPV 10.4 FL (7.4-10.4); RBC 4.51 XMIL (4.7-6.1)
[2017-01-21 06:35] LABS: AGAP 13; BUN 33 mg/dL (8-22); CALCIUM 8.4 mg/dL (8.8-10.2); CHLORIDE 100 mmol/L (98-107); COSMO 279; POTASSIUM 3.9 mmol/L (3.5-5.1); SODIUM 133 mmol/L (136-145); TCO2 20 mmol/L (25-35); TOTAL PROTEIN 6.2 g/dL (6.3-8.3)
[2017-01-21 06:36] LABS: ALKALINE PHOSPHATASE 95 U/L (32-122); GOT 11 U/L (10-34); GPT 6 U/L (10-44); MAGNESIUM 2.3 mg/dL (1.5-2.7)
[2017-01-21] MEDS: GLUCOPHAGE PO SCH ×2 (08:20→16:19)
[2017-01-21] MEDS: APRESOLINE PO SCH ×4 (08:20→16:19)
[2017-01-21] MEDS: PRILOSEC PO SCH (08:20)
[2017-01-21] MEDS: NORVASC PO SCH ×2 (08:21→21:38)
[2017-01-21] MEDS: LASIX PO SCH (08:21)
[2017-01-21] MEDS: GLUCOTROL PO SCH ×2 (08:21→16:19)
[2017-01-21] MEDS: COZAAR PO SCH ×2 (08:22→21:37)
[2017-01-21] MEDS: CATAPRES PO SCH ×3 (08:22→16:20)
[2017-01-21] MEDS: ZYRTEC PO SCH (08:31)
[2017-01-21] MEDS: COREG PO SCH ×2 (08:36→21:37)
[2017-01-21] MEDS ORDERED: COZAAR PO SCH (09:00)
--- NOTE | 2017-01-21 10:22 | HISTORY AND PHYSICAL ---
DIAGNOSIS: "My blood pressure is high". HISTORY OF PRESENT ILLNESS: This is a 51-year-old male with a history of hypertension, who was found to have elevated blood pressures in his primary care physician's office. Therefore, he was sent to the emergency room for further evaluation. In triage, his blood pressure was 221/124. He was given hydralazine, as well as Cardizem IV in the emergency room and ultimately started on a nitroglycerin drip. We did continue his home medications as well. The patient states that he denies any chest pain, headache, dizziness, syncope, palpitations. He will be admitted to ICU for further evaluation and treatment. PAST MEDICAL HISTORY: Hypertension, diabetes mellitus, diastolic heart failure, chronic kidney disease, and sleep apnea. PAST SURGICAL HISTORY: Lipoma is removed. ALLERGIES: No known drug allergies. HOME MEDICATIONS: 1. Coreg 25 mg b.i.d. 2. Glipizide metformin 5/500 b.i.d. 3. Omeprazole 20 daily. 4. Lasix 40 daily. 5. Apresoline 100 t.i.d. 6. Verapamil-SR 240 daily. 7. Zyrtec 1 tab daily. 8. Clonidine 0.2 t.i.d. 9. Zocor 20 mg daily. 10. Goody's powders. He takes 1-2 as needed daily. REVIEW OF SYSTEMS: A 14 point review of systems is discussed with the patient with all systems being negative. He denies chest pain, palpitations, dizziness, syncope, cough, fever, chills, shortness of breath, PND, orthopnea, nausea, vomiting, diarrhea, constipation, black or bloody vomitus, black or bloody stools, hematuria, dysuria, frequency, urgency. PHYSICAL EXAMINATION: GENERAL: This is an obese 51-year-old male, who is lying in the bed in no distress. VITAL SIGNS: Blood pressure is 178/99 with a heart rate of 72, respirations are 16, temperature is 98 degrees with room air saturations of 93% to 98%. HEENT: Head is normocephalic, atraumatic. Pupils equal, round, react to light. EOM's are intact. Sclerae anicteric. Mucous membranes are moist. NECK: Supple. Trachea midline. CARDIOVASCULAR: Regular rate and rhythm. S1, S2 appreciated. PULMONARY: Breath sounds are clear with no increased work of breathing noted. GASTROINTESTINAL: Abdomen is soft, nontender, nondistended with bowel sounds in all 4 quadrants. BACK: No CVAT. MUSCULOSKELETAL: Good range of motion of joints. EXTREMITIES: No clubbing, cyanosis, or edema. Pulses are palpable x4. Calves are nontender. NEUROLOGIC: He is alert and oriented x3. LABS: WBC is 8.3 with hemoglobin 13.8, hematocrit 40 and platelets of 216. D-dimer 0.74. Sodium is 135, potassium 4, BUN 25, creatinine 2.1 with a glucose of 92. ProBNP is 4770 with a troponin of 0.027. X-RAYS: 1. Chest x-ray revealed stable cardiomegaly, likely cardiogenic edema correlate clinically. 2. EKG reveals sinus rhythm with diffuse T-wave abnormalities consistent with hypertension. ASSESSMENT AND PLAN: 1. Malignant hypertension. He will be admitted to intensive care unit. We will continue with his nitroglycerin drip and trend vital signs. We will consult cardiology. 2. Elevated D-dimer of uncertain etiology. We will get ultrasound of his lower extremities. We cannot check a computed tomography angiography due to his creatinine. We will continue to follow and he may ultimately need a lung perfusion scan. 3. Diabetes mellitus. We placed on pattern blood glucose with sliding scale insulin. 4. Diastolic heart failure, aware. 5. Benign prostatic hyperplasia, aware. 6. Dyslipidemia. 7. Tobacco abuse. Nicotine patch. Further treatments pending hospital course. Dictated by EVON De La Garza for Abraham Rodriguez MD cc: EVON De La Garza MD
--- NOTE | 2017-01-21 12:46 | PROGRESS NOTE ---
DATE: 01/21/2017 SUBJECTIVE: The patient notes that he is feeling much better. He noticed his blood pressures were better last night, but he gets very anxious and nervous this morning, and his blood pressures have jumped back up into the 200/100 range. PHYSICAL EXAMINATION: Vital Signs: Temperature 97, pulse 77, respiratory 20, BP 198/97; was previously 140s to 150s systolic for the past 10 hours. Saturation 97% on room air. General: Patient is awake, alert. He is currently in no respiratory distress. He is pleasant to talk with. He does appear anxious on exam. HEENT Normocephalic. Neck supple. CV: Regular rate. Chest: Clear. Abdomen: Soft. Extremities: Moves all extremities. Neurologic: No focal changes. Skin: Warm and dry. No rashes. LABORATORY DATA: Reviewed. ASSESSMENT: 1. Malignant hypertension. 2. Acute anxiety. 3. Obesity. PLAN: The patient has been off of his drip. We will move him to the floor in an attempt to see if this will help calm down his anxiety. We will use Ativan as needed. Further orders as needed. Hopefully, home soon. cc: Abraham Rodriguez MD
[2017-01-21] MEDS ORDERED: CATAPRES PO SCH (20:03)
[2017-01-21] MEDS ORDERED: ZOCOR PO SCH (21:00)
[2017-01-21] MEDS: HYDROCHLOROTHIAZIDE PO SCH (21:36)
[2017-01-21] MEDS: XANAX PO SCH (21:36)
[2017-01-22] MEDS: HUMALOG DOSE (PARKWAY) SUBQ SCH (06:33)
[2017-01-22] MEDS ORDERED: PRILOSEC PO SCH (07:00)
[2017-01-22 07:29] VITALS: BP 197/89
[2017-01-22] MEDS: GLUCOPHAGE PO SCH (07:41)
[2017-01-22] MEDS: GLUCOTROL PO SCH (07:41)
[2017-01-22] MEDS: COREG PO SCH (10:06)
[2017-01-22] MEDS: ZYRTEC PO SCH (10:07)
[2017-01-22] MEDS: APRESOLINE PO SCH (10:07)
[2017-01-22] MEDS: COZAAR PO SCH (10:07)
[2017-01-22] MEDS: LASIX PO SCH (10:07)
[2017-01-22] MEDS: NORVASC PO SCH (10:07)
[2017-01-22] MEDS: XANAX PO SCH (10:08)
[2017-01-22] MEDS: HYDROCHLOROTHIAZIDE PO SCH (10:08)
--- NOTE | 2017-01-23 04:56 | DISCHARGE SUMMARY ---
ADMISSION DATE: 01/19/2017 DISCHARGE DATE: 01/22/2017 DIAGNOSES: 1. Malignant hypertension. 2. History of hypertension. 3. Acute anxiety. 4. Obesity. HOSPITAL COURSE: Mr. Allen was admitted for malignant hypertension, having blood pressures that were 221/124 range. He was given hydralazine as well as Cardizem in the emergency room and ultimately he was placed on a nitroglycerin drip. Thankfully, we were able to wean this off, the drip, and pressures have been in the 160s-180s/80s- 90s range on oral medications. The patient has noted that when he is anxious, his blood pressures do increase and when given antianxiety medication, he states he does feel better. He denied any chest pain, dizziness, palpitations while in the hospital. DISCHARGE PHYSICAL EXAMINATION: Cardiovascular: Regular rate and rhythm. S1 and S2 are appreciated. Pulmonary: Breath sounds are clear with no increased work of breathing noted. Gastrointestinal: Abdomen is soft, nontender, nondistended with bowel sounds in all 4 quadrants. Extremities: No clubbing, cyanosis, or edema. Calves are nontender. Pulses are palpable x4. Neurologic: He is alert and oriented x3. DISCHARGE MEDICATIONS: 1. Xanax 0.5 mg p.o. b.i.d. p.r.n. 2. Norvasc 5 mg p.o. b.i.d. 3. Coreg 50 mg p.o. b.i.d. 4. Clonidine 0.3 p.o. 3 times a day. 5. Hydralazine 100 mg t.i.d. 6. Hydrochlorothiazide 12.5 p.o. b.i.d. 7. [place] 5/325 one q.4 hours p.r.n. 8. Cozaar 50 mg p.o. b.i.d. 9. Omeprazole 20 mg daily. 10. Lasix 40 mg daily. 11. Verapamil SR 240 mg daily. 12. Zyrtec 1 tablet daily. 13. Catapres 0.2 t.i.d. 14. Zocor 20 mg daily. 15. Glipizide/metformin 5/500 one b.i.d. 16. Patient was instructed that he needs to stop his continued use of Goody Powders, stating that he takes at least 2 twice a day and more sometimes. He has been instructed to discuss with his primary care physician alternative medications. FOLLOWUP: He needs to follow up with Dr. Camilo in cardiology in a week, with Dr. Stevens in nephrology as scheduled, and with Dr. Ross in a week or 2. He has being given a Xanax prescription as it appears that a large component of his hypertension is anxiety in hopes that this will help control his blood pressures. He is being discharged home in stable condition with family members. TIME SPENT: This is a greater than 30 minute discharge. Dictated by EVON De La Garza for Abraham Rodriguez MD cc: EVON De La Garza MD
== END 2017-01-22 11:25 | disposition home or self-care (01) ==
LOC: P.ED 15:15 → P.ICU 15:16 → P.MEDSURG 01-21 11:37
PROVIDERS: ATTEND Family Medicine

== ENCOUNTER 2017-04-13 03:43 | Inpatient (IN) ==
[2017-04-13] MEDS ORDERED: LASIX ONE ×2 (03:58)
[2017-04-13] MEDS ORDERED: VASOTEC IV ONE (03:58)
[2017-04-13] MEDS ORDERED: NITROGLYCERIN ONE ×2 (03:58)
[2017-04-13] MEDS ORDERED: VASOTEC ONE ×2 (03:58)
[2017-04-13] MEDS ORDERED: NITROGLYCERIN TOP ONE (03:59)
[2017-04-13] MEDS ORDERED: LASIX IV ONE ×2 (03:59→05:00)
[2017-04-13] MEDS ORDERED: NITROGLYCERIN 50 MG/D5W 50 MG/250 ML IV.SOLN IV SCH (04:10)
[2017-04-13] MEDS ORDERED: NITROGLYCERIN 50 MG/D5W 50 MG/250 ML IV.SOLN ONE ×2 (04:10)
[2017-04-13] MEDS ORDERED: NS 1,000 ML ONE (04:11)
[2017-04-13] MEDS ORDERED: NS 1,000 ML IV PRN (04:12)
[2017-04-13] MEDS ORDERED: MORPHINE ONE (04:28)
[2017-04-13] MEDS ORDERED: MORPHINE IV ONE (04:28)
[2017-04-13 04:30] LABS: URINE CULTURE PL NEEDED? NO
[2017-04-13 04:40] LABS: BILIRUBIN URINE NEGATIVE (NEGATIVE); BLOOD URINE NEGATIVE (NEGATIVE); CLARITY CLEAR (CLEAR); COLOR YELLOW; LEUKOCYTES URINE NEGATIVE (NEGATIVE); NITRITE URINE NEGATIVE (NEGATIVE); UROBILINOGEN URINE NORMAL
[2017-04-13 04:41] LABS: URINE SOURCE CATH
[2017-04-13 04:42] LABS: URINE EPITHELIAL CELLS <10 /HPF (<10); URINE RBC <10 /HPF (<10); URINE WBC <10 /HPF (<10)
--- NOTE | 2017-04-13 04:47 | EKG Report ---
Test Performed on : 04/13/2017 04:29:09 AM Test Reason : CHEST PAIN Blood Pressure : / mmHG Vent. Rate : 097 BPM Atrial Rate : 097 BPM P-R Int : 188 ms QRS Dur : 102 ms QT Int : 400 ms P-R-T Axes : 048 012 107 degrees QTc Int : 508 ms Normal sinus rhythm. Possible Left atrial enlargement Cannot rule out Inferior infarct , age undetermined Anteroseptal infarct (cited on or before 12-JAN-2017) T wave abnormality, consider lateral ischemia Prolonged QT Abnormal ECG When compared with ECG of 08-APR-2017 08:21, premature supraventricular complexes. are no longer present Vent. rate has increased BY 35 BPM Questionable change in initial forces of Anterior leads T wave inversion less evident in Anterolateral leads Unconfirmed Result
--- NOTE | 2017-04-13 04:53 | PROVIDER DOCUMENTATION ---
HPI-Cardiac General - General Chief Complaint: Shortness of Breath Stated Complaint: SOB Time Seen by Provider: 04/13/17 03:58 Source: patient Unable to obtain history due to:: urgency Allergies/Adverse Reactions: Patient Allergies Allergy/AdvReac Type Severity Reaction Status Date / Time No Known Allergies Allergy Verified 04/13/17 03:51 Home Medications: Home Medication List Medication Instructions Recorded Confirmed Last Taken Type Clonidine [Catapres] 0.2 mg PO TID 10/18/13 01/20/17 08/20/16 History Cetirizine [Zyrtec] 1 tab PO DAILY 09/16/16 01/20/17 Unknown History Glipizide/Metformin HCl 1 each PO BID 01/12/17 01/20/17 Unknown History [Glipizide-Metformin 5-500 mg] Omeprazole 20 mg PO DAILY 01/12/17 01/20/17 Unknown History SIMVAstatin [Zocor] 20 mg PO DAILY 01/12/17 01/20/17 Unknown History Furosemide [Lasix] 40 mg PO DAILY #30 tablet 01/13/17 01/20/17 Unknown Rx Verapamil S.r. [Isoptin Sr] 240 mg PO DAILY #30 tablet 01/13/17 01/20/17 Unknown Rx Aspirin/Acetaminophen/Caffeine 1 - 2 each PO BID PRN 01/20/17 01/20/17 Unknown History [Rose's Ex-Str Powder Packet] Alprazolam [Xanax] 0.5 mg PO BID PRN #60 tablet 01/22/17 Unknown Rx Amlodipine [Norvasc] 5 mg PO BID #60 tablet 01/22/17 Unknown Rx Carvedilol [Coreg] 50 mg PO BID #60 tablet 01/22/17 Unknown Rx Clonidine [Catapres] 0.3 mg PO TID #90 tablet 01/22/17 Unknown Rx Hydralazine [Apresoline] 100 mg PO TID #90 tablet 01/22/17 Unknown Rx Hydrochlorothiazide 12.5 mg PO BID #60 tablet 01/22/17 Unknown Rx Hydrocodone/APAP 5 mg/325 mg 1 each PO Q4H PRN PRN #25 tablet 01/22/17 Unknown Rx [Voca-5] Losartan [Cozaar] 50 mg PO BID #60 tablet 01/22/17 Unknown Rx - History of Present Illness-Cardiac Location: reports: substernal Quality of Pain: reports: tightness Severity in ED: severe Onset/Duration: 4-6 hours ago Timing: still present, getting worse Context/Activities at Onset: reports: rest Modifying Factors: improves with: nothing Nitro Today/Relief: reports: no nitro taken today Aspirin Treatment Today: reports: no aspirin today Prior Chest Pain/Cardiac Workup: reports: stress test Associated Symptoms: reports: edema, headache, shortness of breath Similar Symptoms Previously?: Yes Recently Seen Here or By Another Healthcare Provider: No Review of Systems - Adult - REVIEW OF SYSTEMS - ADULT Constitutional: reports: no symptoms reported Eyes: reports: no symptoms reported Ears, Nose, Mouth & Throat: reports: no symptoms reported Cardiovascular: reports: edema, orthopnea, PND Respiratory: reports: dyspnea on exertion, shortness of breath Gastrointestinal: reports: no symptoms reported Genitourinary: reports: no symptoms reported Musculoskeletal: reports: no symptoms reported Integumentary: reports: no symptoms reported Neurological: reports: no symptoms reported Psychiatric: reports: no symptoms reported Endocrine: reports: no symptoms reported Hematologic/Lymphatic: reports: no symptoms reported Allergic/Immunologic: reports: no symptoms reported All Other Systems: Reviewed and Negative Past History - Adult - PAST MEDICAL HISTORY-ADULT Review of Records: reports: Old Records Reviewed, Nursing Assessment Review, Medications Reviewed, Social history reviewed & non-contributory. Major Childhood Illnesses: reports: history unknown Cardiovascular: reports: HTN, hyperlipidemia Respiratory: reports: pneumonia, sleep apnea Gastrointestinal: reports: GERD Obstetrical/Gynecological: reports: denies history Genitourinary: reports: denies history Musculoskeletal: reports: denies history Neurological: reports: denies history Endocrine/Immune: reports: Diabetes Other Conditions: reports: denies history - PRIOR SURGERIES/PROCEDURES Surgical/Procedure History: reports: reviewed, not pertinent - IMMUNIZATION STATUS Childhood Immunizations: See Nurse Assessment Flu Vaccine: See Nurse Assessment - FAMILY HISTORY Family History: reviewed, not pertinent Physical Exam-General - PHYSICAL EXAM-ADULT Initial Vital Signs Reviewed: Yes - CONSTITUTIONAL General Appearance: alert, severe distress, obese, slow to respond - EYES Eyes: PERRL/EOMI - HEAD, EARS, NOSE, MOUTH & THROAT HENMT: normocephalic/atraumatic, moist mucous membranes, normal ENT inspection, TMs normal - NECK Neck: non-tender, full range of motion, supple - RESPIRATORY Respiratory: decreased breath sounds, rales - CARDIOVASCULAR Cardiovascular: tachycardia - GASTROINTESTINAL (ABDOMEN) Abdominal Exam: normal bowel sounds, non tender, soft - LYMPHATIC Lymphatic: no adenopathy - MUSCULOSKELETAL Back Exam: no CVA tenderness, no vertebral tenderness Extremity: normal range of motion, non-tender, pedal edema Peripheral Pulses: radial (R): 4+, radial (L): 4+ - SKIN Integumentary: diaphoresis - NEUROLOGIC Neurologic: grossly normal, no motor/sensory deficits - PSYCHIATRIC Psych/Mental Status: normal thought content, anxious, disheveled Progress - PLAN OF CARE/RESULTS Progress/Plan/Lab Results: Vital Signs - 8 hr 04/13/17 03:47 04/13/17 04:05 04/13/17 04:11 Pulse Rate 124 H 115 H 98 H Respiratory Rate 25 H 40 H 35 H Blood Pressure 250/156 O2 Sat by Pulse Oximetry 60 L 96 95 04/13/17 04:13 04/13/17 04:24 04/13/17 04:25 Pulse Rate 97 H 96 H Respiratory Rate 31 H 37 H Blood Pressure 236/150 279/171 O2 Sat by Pulse Oximetry 94 L 95 95 04/13/17 04:33 04/13/17 04:37 04/13/17 04:42 Pulse Rate 94 H 92 H 92 H Respiratory Rate 32 H 32 H 34 H Blood Pressure 211/145 228/143 230/141 O2 Sat by Pulse Oximetry 96 95 94 L 04/13/17 04:59 04/13/17 05:06 04/13/17 05:13 Pulse Rate 94 H 93 H 94 H Respiratory Rate 21 31 H 33 H Blood Pressure 219/136 224/138 211/131 O2 Sat by Pulse Oximetry 94 L 93 L 95 04/13/17 05:17 04/13/17 05:22 04/13/17 05:27 Pulse Rate 96 H 100 H 96 H Respiratory Rate 30 H 30 H 31 H Blood Pressure 217/133 206/125 196/117 O2 Sat by Pulse Oximetry 94 L 91 L 94 L Laboratory Results - last 24 hr 04/13/17 04/13/17 04/13/17 04:00 04:00 04:00 WBC RBC Hgb Hct MCV MCH MCHC RDW Std Deviation Plt Count MPV Immature Gran % (Auto) Neut % (Auto) Lymph % (Auto) [place] % (Auto) Eos % (Auto) Baso % (Auto) Immature Gran # (Auto) Neut # (Auto) Lymph # (Auto) [place] # (Auto) Eos # (Auto) Baso # (Auto) Segmented Neutrophils Lymphocytes Monocytes Eosinophils Hypochromia Microcytosis Sodium 140 Potassium 3.9 Chloride 103 Carbon Dioxide 23 L Anion Gap 14 BUN 21 Creatinine 2.4 H Estimated GFR/1.73 m2 29 BUN/Creatinine Ratio 9 Glucose 233 H Calculated Osmolality 290 Calcium 9.6 Magnesium 2.3 Total Bilirubin 0.30 AST 14 ALT 12 Alkaline Phosphatase 147 H Creatine Kinase 157 Troponin T 0.061 Elg-X-Kcyqcygsuyg Pept 2694 H Total Protein 8.4 H Albumin 4.0 Globulin 4.0 Albumin/Globulin Ratio 1.0 Urine Source Urine Color Urine Clarity Urine pH Ur Specific [place] Urine Protein Urine Ketones Urine Blood Urine Nitrite Urine Bilirubin Urine Urobilinogen Urine Microscopic RBC Urine WBC Urine Microscopic WBC Ur Epithelial Cells Urine Bacteria Urine Glucose 04/13/17 04/13/17 04:00 04:00 WBC 13.70 H RBC 6.22 H Hgb 15.7 Hct 45.7 MCV 73.5 L MCH 25.2 L MCHC 34.4 RDW Std Deviation 17.0 H Plt Count 228 MPV 11.7 H Immature Gran % (Auto) 0.2 Neut % (Auto) 36.4 L Lymph % (Auto) 54.5 H [place] % (Auto) 5.2 Eos % (Auto) 3.3 Baso % (Auto) 0.4 Immature Gran # (Auto) 0.03 Neut # (Auto) 4.98 Lymph # (Auto) 7.47 H [place] # (Auto) 0.71 H Eos # (Auto) 0.45 Baso # (Auto) 0.06 Segmented Neutrophils 29 L Lymphocytes 59 H Monocytes 7 Eosinophils 5 Hypochromia 1+ Microcytosis 1+ Sodium Potassium Chloride Carbon Dioxide Anion Gap BUN Creatinine Estimated GFR/1.73 m2 BUN/Creatinine Ratio Glucose Calculated Osmolality Calcium Magnesium Total Bilirubin AST ALT Alkaline Phosphatase Creatine Kinase Troponin T [id number]-[id number]-Zmctsnzyahm Pept Total Protein Albumin Globulin Albumin/Globulin Ratio Urine Source CATH Urine Color YELLOW Urine Clarity CLEAR Urine pH 8.0 Ur Specific [place] 1.010 Urine Protein 3+(500 mg/dL) A Urine Ketones NEGATIVE Urine Blood NEGATIVE Urine Nitrite NEGATIVE Urine Bilirubin NEGATIVE Urine Urobilinogen NORMAL Urine Microscopic RBC <10 Urine WBC NEGATIVE Urine Microscopic WBC <10 Ur Epithelial Cells <10 Urine Bacteria NEGATIVE Urine Glucose 1+(100 mg/dL) A Orders Category Date Time Status Cardiac Monitoring DIRECTED Care 04/13/17 03:53 Active [place] [facility] Insertion ORDERED Care 04/13/17 03:56 Active Oxygen Therapy- ED Nursing DIRECTED Care 04/13/17 03:53 Active Saline Loc NOW Care 04/13/17 03:53 Active CHEST-PORTABLE [RAD] Stat Exams 04/13/17 03:53 Taken ABG [RESP] Routine Lab 04/13/17 03:54 Ordered CBC WITH ELECTRONIC DIFF [HEME] Stat Lab 04/13/17 04:00 Completed CK PROFILE [SP CHEM] Stat Lab 04/13/17 04:00 Completed COMPREHENSIVE METABOLIC PANEL [CHEM] Stat Lab 04/13/17 04:00 Completed D-DIMER PL [COAG] Stat Lab 04/13/17 03:53 Received MAGNESIUM [CHEM] Stat Lab 04/13/17 04:00 Completed PRO B-NATRIURETIC PEPTIDE Stat Lab 04/13/17 04:[address]IME WITH INR [address] [COAG] Stat Lab 04/13/17 03:[address] [COAG] Stat Lab 04/13/17 03:53 Received TROPONIN T Stat Lab 04/13/17 04:[address] W/POSS RFLX CULT [URINALYSIS] Stat Lab 04/13/17 04:00 Completed 0.9% Sodium Chloride Inj [Ns] 1,000 ml Med 04/13/17 04:11 Discontinued .ROUTE As Directed 0.9% Sodium Chloride Inj [Ns] 1,000 ml Med 04/13/17 04:12 Active IV 30 mls/hr Enalaprilat [Vasotec] Med 04/13/17 03:58 Discontinued 2.5 mg IV NOW ONE Furosemide [Lasix] Med 04/13/17 03:59 Discontinued 40 mg IV NOW ONE Furosemide [Lasix] Med 04/13/17 05:00 Discontinued 40 mg IV NOW ONE Hydralazine [Apresoline] Med 04/13/17 05:01 Discontinued 10 mg IV NOW ONE Hydralazine [Apresoline] Med 04/13/17 05:14 Discontinued 10 mg IV NOW ONE Hydralazine [Apresoline] Med 04/13/17 05:01 Discontinued 20 mg .ROUTE .STK-MED ONE Morphine Med 04/13/17 04:28 Discontinued 4 mg .ROUTE .STK-MED ONE Morphine Med 04/13/17 04:28 Discontinued 4 mg IV NOW ONE Nitroglycerin Med 04/13/17 03:59 Discontinued 1 inch TOP NOW ONE Nitroglycerin 50 mg/D5w Med 04/13/17 04:10 Active 50 mg in 250 ml IV 10 microgm/min BIPAP Stat Oth 04/13/17 03:59 Active EKG [EKG] Stat Ther 04/13/17 03:53 Draft Result Diagrams: 04/13/17 04:00 04/13/17 04:00 - REASSESSMENT Reassessment #1 Time Reassessed: 04:53 Status: improving (BP coming down with NTG drip symptomaticallty better) - EKG 1 Time of EKG reading by physician:: 04:30 EKG Read and Signed by:: Edu Kruse EKG Interpretation (*Must complete 3 of following elements*): Abnormal Rate: 97 Rhythm: nsr [place]: normal QRS: Q Waves present (inferior), poor R wave progression ST Wave: non-specific ST changes Prior EKG Comparison: no prior EKG - XRAY 1 XRAY Study: Chest (cardiomegally, pulmonary edema) Departure - Departure Date of Disposition Decision: 04/13/17 Time of Disposition Decision: 05:31 DIAGNOSIS: Hypertensive CHF (congestive heart failure) Disposition: ADMITTED INPATIENT 09 Certified Medical Emergency: Emergent Condition: Fair Referrals and Follow-Ups: Yousuf Ross MD [Primary Care Provider] - - Critical Care Note This patient required my direct & personal management of CC.: Yes Total Time (mins): 120 Critical Care Statement: This patient required my direct personal management to treat or rule out processes, the absence of which, could potentiallly result in sudden, clinically significant life or limb threatening deterioration. Attestation - Physician/ JENNA Attestation The physician spent face to face time with patient:: Yes Advanced Practice Provider documentation review:: Supervising physician onsite and consulted in the evaluation and care of this patient. The physician did have a face to face encounter with the patient.
[2017-04-13] MEDS ORDERED: APRESOLINE ONE (05:01)
[2017-04-13] MEDS ORDERED: APRESOLINE IV ONE ×2 (05:01→05:14)
[2017-04-13 05:14] LABS: CALCIUM 9.6 mg/dL (8.8-10.2); MAGNESIUM 2.3 mg/dL (1.5-2.7); POTASSIUM 3.9 mmol/L (3.5-5.1); TOTAL BILIRUBIN 0.3 mg/dL (0.20-1.00); TOTAL PROTEIN 8.4 g/dL (6.3-8.3)
[2017-04-13 05:15] LABS: BASO% 0.4 % (0.0-0.8); EOS 5 % (1-10); EOS# 0.45 X1000 (0.0-0.7); EOS% 3.3 % (0.0-10.0); HEMATOCRIT 45.7 % (42.0-52.0); HEMOGLOBIN 15.7 g/dL (14.0-18.0); HYPOCHROM 1+; IMM GRAN# 0.03 X1000 (0.0-0.04); IMM GRAN% 0.2 % (0.0-0.5); LYMPH# 7.47 X1000 (1.2-3.4); LYMPH% 54.5 % (20.5-51.1); LYMPHS 59 % (21-51); MANUAL DIFF NEEDED? YES; MCH 25.2 PG (27-31); MCHC 34.4 g/dL (33-37); MCV 73.5 FL (81-99); MONO 7 % (1-9); MONO# 0.71 X1000 (0.11-0.59); MONO% 5.2 % (1.7-9.3); MPV 11.7 FL (7.4-10.4); NEUT% 36.4 % (42.2-75.2); PLT 228 X1000 (130-400); RBC 6.22 XMIL (4.7-6.1)
[2017-04-13] MEDS ORDERED: ZOFRAN IV PRN (05:33)
[2017-04-13] MEDS ORDERED: TYLENOL PO PRN (05:33)
[2017-04-13 05:40] LABS: INR 0.87 (0.86-1.15); PROTIME 12.5 Seconds (12.1-15.5); PTT PL 33.2 Seconds (22.6-43.9)
[2017-04-13 06:49] LABS: BLOOD TYPE ARTERIAL; DRAW SITE R RADIAL; METHB 0.6 % (0.0-1.5); O2(CT) 13.6 mL/dL (15.0-23.0); SAMPLE BLOOD; SAO2 62.5 % (95.0-100.0)
[2017-04-13 06:53] LABS: pH(98.6) 7.16 (7.35-7.45)
[2017-04-13 06:54] LABS: PCO2(98.6) 67 mmHg (35-45); PO2(98.6) 34 mmHg (60-100)
[2017-04-13 06:55] LABS: BE -6.4 mmoll (-3.0-3.0)
[2017-04-13 06:56] LABS: MODALITY CANNULA
[2017-04-13 06:57] LABS: ALLEN TEST YES
--- NOTE | 2017-04-13 07:03 | Diag Imaging Result Doc PS360 ---
EXAM: CHEST-PORTABLE HISTORY: CP TECHNIQUE: AP portable erect at 0415 COMMENT: There is increasing alveolar opacity in both lung bases particularly of the right lower lobe compared to 04/08/2017. IMPRESSION: Pulmonary edema. Electronically signed by Sergio Mason 04/13/2017 7:01 AM
[2017-04-13 08:17] LABS: BE -2.3 mmoll (-3.0-3.0); BLOOD TYPE ARTERIAL; DRAW SITE R RADIAL; METHB 0.7 % (0.0-1.5); O2(CT) 19.2 mL/dL (15.0-23.0); PCO2(98.6) 38 mmHg (35-45); PO2(98.6) 144 mmHg (60-100); SAMPLE BLOOD; SAO2 98.1 % (95.0-100.0); THB 14.1 g/dL (11.5-17.4); pH(98.6) 7.38 (7.35-7.45)
[2017-04-13 08:21] LABS: MODALITY BI PAP
[2017-04-13 08:22] LABS: ALLEN TEST YES
[2017-04-13] MEDS: NITROGLYCERIN 50 MG/D5W 50 MG/250 ML IV.SOLN IV SCH ×3 (09:13→21:45)
[2017-04-13] MEDS: LASIX IV SCH ×2 (09:34→20:09)
[2017-04-13] MEDS: APRESOLINE IV PRN ×3 (09:34→15:38)
[2017-04-13] MEDS: MORPHINE IV PRN ×2 (13:15→20:09)
[2017-04-13] MEDS ORDERED: DUONEB (A & A) INH PRN (15:16)
[2017-04-13] MEDS: SOLU-MEDROL IV SCH ×2 (15:37→23:13)
[2017-04-13] MEDS: CATAPRES PO SCH ×2 (15:38→23:13)
[2017-04-13] MEDS: DUONEB (A & A) INH SCH ×3 (16:22→23:30)
--- NOTE | 2017-04-13 17:58 | HISTORY AND PHYSICAL ---
PRIMARY CARE PHYSICIAN: Dr. Yousuf Ross. CHIEF COMPLAINT: Shortness of breath. HISTORY OF PRESENT ILLNESS: This is a 51-year-old gentleman who is well known to our service, having multiple admissions for the same. He comes in complaining of a sudden onset of shortness of breath and a chest tightness. He denied any overt chest pain, any fevers, chills, or productive cough. He had an O2 saturation of 60 on room air on arrival, with ABGs pH 7.16, pCO2 of 67, PO2 of 34 and a bicarb of 18. This was on 3 L nasal cannula. He was placed on BiPAP and saturations improved and repeat ABGs revealed a pH of 7.38, pCO2 of 38, PO2 of 144, bicarb of 23.3. Chest x-ray revealed pulmonary edema for which he was given nitroglycerin, hydralazine and IV Lasix. He was admitted for further evaluation and treatment. PAST MEDICAL HISTORY: Hypertension, diabetes mellitus, diastolic heart failure, chronic kidney disease and sleep apnea. PAST SURGICAL HISTORY: Lipoma removed. ALLERGIES: No known drug allergies. HOME MEDICATIONS: A list will be obtained. REVIEW OF SYSTEMS: Pertinent positives are stated in the HPI. He denied chest pain, palpitations, dizziness, syncope, any fever or chills, productive cough, nausea, vomiting, diarrhea, constipation, black or bloody vomitus, black or bloody stools, any hematuria, dysuria, frequency, urgency. PHYSICAL EXAMINATION: GENERAL: This is a 51-year-old gentleman who is sitting in the bed with BiPAP on, in mild distress. VITAL SIGNS: Blood pressure is 170/90, with a heart rate of 87, respirations are 18, temperature is 98.7 degrees with O2 saturations of 93-95% on BiPAP with 18/8 and 50%. HEENT: Head is normocephalic, atraumatic. Pupils equal, round, react to light. EOMs are intact. Sclerae anicteric. Mucous membranes are dry. NECK: Supple with trachea midline. CARDIOVASCULAR: Regular rate and rhythm. S1 and S2 appreciated. PULMONARY: Breath sounds are noted clear with prolonged expiration, they are assist of BiPAP. GASTROINTESTINAL: Abdomen is soft, nontender, nondistended with bowel sounds in all 4 quadrants. EXTREMITIES: No clubbing, cyanosis, or edema. Calves are nontender. Pulses are palpable x 4. NEUROLOGIC: He is alert and oriented x 3. DIAGNOSTICS: WBC is 13.7 with hemoglobin 15, hematocrit 45 and platelets of 228,000. Sodium is 140, potassium 3.9, BUN 21, creatinine 2.4, with a glucose of 233. Chest x-ray revealed pulmonary edema. ASSESSMENT AND PLAN: 1. Malignant hypertension. 2. Acute hypercapnic hypoxic respiratory failure in a patient with chronic hypercapnic hypoxic respiratory failure. 3. Diabetes mellitus. 4. Leukocytosis. 5. Pulmonary edema. 6. Benign prostatic hypertrophy. 7. Tobacco abuse. PLAN: He will be admitted to ICU and placed on telemetry. We will identify his home medications and continue as appropriate. At present, we will give IV hydralazine p.r.n. as well as continue nitroglycerin drip. We will continue diuresis with IV Lasix every 12 hours. We will give DuoNeb q. 4 hours with q. 2 p.r.n. and steroids to taper. He will be placed on pattern blood glucose with sliding scale insulin. Will trend labs. Further treatments pending hospital course. Dictated by EVON De La Garza for Abraham Rodriguez MD cc: EVON De La Garza MD
[2017-04-13] MEDS ORDERED: NIPRIDE 50 MG in D5W 250 ML IV SCH (18:19)
[2017-04-13] MEDS: COREG PO SCH (20:11)
[2017-04-13] MEDS: PRILOSEC PO SCH (20:11)
[2017-04-14] MEDS: DUONEB (A & A) INH SCH ×6 (04:25→23:04)
--- NOTE | 2017-04-14 05:47 | PROGRESS NOTE ---
DATE: 04/13/2017 HISTORY OF PRESENT ILLNESS: The patient is a 51-year-old male, who unfortunately has been on service a few times previous. This time, he presents with pH 7.1, pCO2 of 67, and a PO2 of 34, and a bicarb of 18. He was immediately given IV Lasix, and given BiPAP. The ER staff noted that they were quite concerned they were going to have to intubate him. Thankfully, this did not occur. Currently, his breathing is much improved. His pO2 is 144, pH 7.38, and pCO2 is 38. PHYSICAL EXAMINATION: General: Patient is awake, alert. He is currently in mild respiratory distress. He is pleasant to talk with. Lungs: Decreased, but equal breath sounds bilaterally. Harsh wheezing bilaterally. Cardiovascular: Regular rate. Abdomen: Soft and obese. PLAN: Will place patient in the ICU, continue to attempt to wean off BiPAP, use IV Lasix 40 q.12, continue breathing medicines. Further orders as needed. cc: Abraham Rodriguez MD
[2017-04-14 06:05] LABS: HEMATOCRIT 34.3 % (42.0-52.0); HEMOGLOBIN 11.7 g/dL (14.0-18.0); MCH 25.1 PG (27-31); MCHC 34.1 g/dL (33-37); MCV 73.6 FL (81-99); MPV 11.3 FL (7.4-10.4); RBC 4.66 XMIL (4.7-6.1)
[2017-04-14 06:27] LABS: ALBUMIN 2.9 g/dL (3.5-5.0); CALCIUM 8.1 mg/dL (8.8-10.2); POTASSIUM 4.4 mmol/L (3.5-5.1); TOTAL BILIRUBIN 0.3 mg/dL (0.20-1.00)
[2017-04-14] MEDS: CATAPRES PO SCH ×3 (06:27→23:19)
[2017-04-14] MEDS: PRILOSEC PO SCH ×2 (06:28→20:41)
[2017-04-14] MEDS: NITROGLYCERIN 50 MG/D5W 50 MG/250 ML IV.SOLN IV SCH (06:28)
[2017-04-14 06:30] LABS: BE -1.2 mmoll (-3.0-3.0); BLOOD TYPE ARTERIAL; DRAW SITE R RADIAL; O2(CT) 15.3 mL/dL (15.0-23.0); PCO2(98.6) 32 mmHg (35-45); PO2(98.6) 67 mmHg (60-100); SAMPLE BLOOD; SAO2 95.5 % (95.0-100.0); THB 11.6 g/dL (11.5-17.4); pH(98.6) 7.45 (7.35-7.45)
[2017-04-14 06:32] LABS: ALLEN TEST YES; MODALITY CANNULA
[2017-04-14] MEDS: COREG PO SCH ×2 (09:24→20:41)
[2017-04-14] MEDS: LASIX IV SCH ×2 (09:24→23:19)
[2017-04-14] MEDS: SOLU-MEDROL IV SCH ×2 (09:25→18:56)
[2017-04-14] MEDS: APRESOLINE PO SCH ×2 (12:30→20:41)
[2017-04-14] MEDS: APRESOLINE IV PRN (15:30)
[2017-04-14] MEDS ORDERED: NORCO-5 PO PRN (17:39)
[2017-04-14] MEDS: HYDROCHLOROTHIAZIDE PO SCH (20:41)
[2017-04-14] MEDS: COZAAR PO SCH (20:41)
[2017-04-14] MEDS ORDERED: NORVASC PO SCH (21:00)
[2017-04-15] MEDS: SOLU-MEDROL IV SCH ×2 (00:02→08:18)
[2017-04-15] MEDS: DUONEB (A & A) INH SCH ×2 (03:11→07:35)
[2017-04-15] MEDS: APRESOLINE PO SCH (04:02)
--- NOTE | 2017-04-15 05:34 | PROGRESS NOTE ---
DATE: 04/14/2017 SUBJECTIVE: Patient seen and examined. He is feeling much better. He is in no respiratory distress. Currently, he is sitting in the bed, talking with his family. He is asking to eat. Denies any chest pain, palpitations. Denies any fevers or chills. OBJECTIVE: Vital signs: Temp 98.3, pulse 78, respiratory rate 18, BP 135/69. General: Patient is awake, alert. He is currently in no respiratory distress. She is off BiPAP. He is feeling much better. Sat is improved on 2 L, as he is off BiPAP. HEENT: Normocephalic, atraumatic. Neck: Supple. No JVD. CV: Regular rate. Chest: Relatively clear and nonlabored. Abdomen: Soft. Extremities: Moves all extremities. Neurologic: No focal changes. Skin: Warm and dry. No rashes. ASSESSMENT: 1. Malignant hypertension. 2. Noncompliance. 3. Acute hypercapnic hypoxic respiratory failure, resolved. 4. Diabetes type 2. 5. Morbid obesity. PLAN: We will transition the patient to the floor after stopping his Nipride drip. If he tolerates this well, we will place on p.o. medications, and move to the floor, hopefully home in 1 day. cc: Abraham Rodriguez MD
[2017-04-15 05:54] LABS: BE -1.3 mmoll (-3.0-3.0); BLOOD TYPE ARTERIAL; DRAW SITE R RADIAL; METHB 1.1 % (0.0-1.5); O2(CT) 16.1 mL/dL (15.0-23.0); PCO2(98.6) 35 mmHg (35-45); PO2(98.6) 64 mmHg (60-100); SAMPLE BLOOD; THB 12.3 g/dL (11.5-17.4); pH(98.6) 7.42 (7.35-7.45)
[2017-04-15 05:56] LABS: ALLEN TEST YES; MODALITY ROOM AIR
[2017-04-15] MEDS: PRILOSEC PO SCH (06:26)
[2017-04-15] MEDS ORDERED: GLUCOTROL PO SCH (08:00)
[2017-04-15] MEDS ORDERED: GLUCOPHAGE PO SCH (08:00)
[2017-04-15] MEDS: COREG PO SCH (08:18)
[2017-04-15] MEDS: CATAPRES PO SCH (08:18)
[2017-04-15] MEDS: HYDROCHLOROTHIAZIDE PO SCH (08:18)
[2017-04-15] MEDS: COZAAR PO SCH (08:18)
[2017-04-15] MEDS ORDERED: LASIX PO SCH (09:00)
[2017-04-15] MEDS ORDERED: ISOPTIN SR PO SCH ×2 (09:00)
[2017-04-15 11:12] VITALS: BP 129/79
[2017-04-15] MEDS ORDERED: ZOCOR PO SCH (21:00)
[2017-04-15] MEDS ORDERED: APRESOLINE PO SCH (21:00)
--- NOTE | 2017-04-16 15:32 | DISCHARGE SUMMARY ---
ADMISSION DATE: 04/13/2017 DISCHARGE DATE: 04/15/2017 DIAGNOSES: 1. Malignant hypertension. 2. Acute hypercapnic hypoxic respiratory failure in a patient with chronic hypercapnic hypoxic respiratory failure. 3. Diabetes mellitus. 4. Leukocytosis resolved. 5. Pulmonary edema resolved. 6. Benign prostatic hypertrophy aware. 7. Tobacco use and abuse. DIAGNOSTICS: 04/13/2017 chest x-ray revealed increasing alveolar capacity in both lung bases particular of the right lower lobe, impression pulmonary edema. HOSPITAL COURSE: Mr. Allen presented to the emergency room with increasing shortness of breath and chest tightness. He denied any fevers, chills, coughs. He did have a saturation of 60 on arrival with a pH of 7.1, pCO2 of 67, a PO2 of 34. This was on 3 L nasal cannula, he was placed on BiPAP. He was diuresed and thankfully he has improved and is ready to be discharged home today. We did continue his home medications. Blood sugars ranged in the 186-380 range. PHYSICAL EXAM: General: This is a 51-year-old male who is sitting up in the chair with no distress. Vital Signs: Blood pressure is 129/79 with heart rate of 63, respirations 18, temperature 97.5 degrees oral with O2 saturations of 97-100% on room air. Cardiovascular: Regular rate and rhythm. S1 and S2 are appreciated. Pulmonary: Breath sounds are clear with no increased work of breathing noted. Gastrointestinal: Abdomen soft, nontender, nondistended. Bowel sounds in all 4 quadrants. Extremities: No clubbing, cyanosis, or edema. Calves are nontender. Pulses are palpable x4. Neurologic: He is alert and oriented x3. Cranial nerves 2- 12 grossly intact. DISCHARGE MEDICATIONS: Verapamil SR 240 mg daily, Coreg 50 mg b.i.d., clonidine 0.3 t.i.d., Lasix 40 mg daily, glipizide/metformin 5/500 one b.i.d., hydralazine 100 mg p.o. t.i.d., hydrochlorothiazide 12.5 mg b.i.d., [place] 5/325 one q.4 hours p.r.n., Cozaar 20 daily, Zocor 20 mg daily. Goody's Powder 1 b.i.d. p.r.n., Medrol Dosepak take as directed. FOLLOWUP: He is to follow up with his primary care physician Dr. Ross in the next week sooner if needed. He is being discharged home in stable condition with family members. TIME SPENT: This is a greater than 30 minute discharge. Dictated by EVON De La Garza for Abraham Rordiguez MD cc: EVON De La Garza MD
--- NOTE | 2017-04-18 03:30 | DISCHARGE SUMMARY ---
ADMISSION DATE: 04/13/2017 DISCHARGE DATE: 04/15/2017 ADDENDUM REPORT The patient was seen this morning and examined myself. Discussed with and the full note dictated by nurse practitioner. The patient currently is in no distress. He is lying in bed. States he is feeling much better. Denies any chest pain, palpitations. Denies any headaches or blurred vision. Denies any focalized numbness, tingling, weakness. Denies any respiratory issues. States that overall his symptoms are better and is asking to go home. On physical exam, patient's blood pressures are better. It was 135/69 yesterday, currently back up to 180, but he has also not had his morning medications. He denies any chest pain. CV is regular rate. Chest is clear. On discharge, patient is awake, alert. He is oriented. He is in no distress. He will be discharged home. He will follow up outpatient with primary care. Discussed with him that he certainly needs to take his medications at home. Check his blood pressures and follow up with his regular doctor. cc: Abraham Rodriguez MD
== END 2017-04-15 15:10 | disposition home or self-care (01) ==
LOC: P.ED 03:43 → P.ICU 05:43 → P.MEDSURG 04-14 20:25
PROVIDERS: ADMIT Family Medicine; ATTEND Family Medicine